=== PATIENT | male | born 1940 | race Caucasian/White ===

== ENCOUNTER 2017-08-08 11:05 | Inpatient (IN) | payer MEDICARE ==
--- NOTE | 2017-08-08 11:08 | HP ---
HISTORY OF PRESENT ILLNESS: William Aguilar Sr. is a 76-year-old male patient from [place] who was seen at [facility] recently in the emergency room and evaluated by Hospitalist Service and sent home. He had a blister of his right great toe. Since that time, he has developed gangrene on the plantar aspect and cellulitis of the toe and foot. He was seen in the office today and was se nt to the hospital for amputation of his right great toe. He was initially evaluated in the emergenc y room 08/05/2017. At that time, cultures revealed MRSA and he has been on metronidazole and Levaqui n to which he was sensitive. He had x-rays performed of the right foot, 08/04/2017, noting absence o f osteomyelitis, renal function was normal on laboratories 08/04/2017. ALLERGIES: PENICILLIN. TOBACCO AND ALCOHOL: None. PAST MEDICAL HISTORY: Diabetes mellitus type 2, hypertension, dyslipidemia, hypothyroidism, history of coronary artery disease with prior stent placement, peripheral neuropathy, gout. PAST SURGICAL HISTORY: Hip replacement, lumbar surgery, 4 back surgeries. He has a pain implant in his back in 2008, breast lump removed. Two foot surgeries, cardiac stent placed late . He is followed by Dr. Jordan. He saw Dr. Jordan last year, reports negative cardiac stress t est. He is asymptomatic from a cardiac standpoint. Hip replacement February 2013. MEDICATIONS: Gabapentin 300 mg 2 a.m., 2:00 p.m., Plavix 75 mg a day, allopurinol 300 mg a day, Paro xetine 30 mg b.i.d., losartan 50 mg a.m., Synthroid 0.125 mcg a.m., Mirapex 0.125 mg 6 daily, atorvas tatin 40 mg daily at bedtime, Lantus insulin a.m., NovoLog 10-20 units 3-4 times a day per sliding sc ghanshyam, hydrocodone 10/325 p.r.n. pain, iron 65 mg a day, folic acid 800 mg a day, Equate stool softener s daily, Equate aspirin 325 mg daily. REVIEW OF SYSTEMS: Ten point noncontributory. PHYSICAL EXAMINATION: VITAL SIGNS: Weight 228 pounds, 6 foot 4, 141/82, 80, 97.9 degrees. HEENT: Unremarkable. LUNGS: Clear to auscultation. CARDIAC: Regular rate and rhythm without murmur or gallop. ABDOMEN: Soft, nontender. EXTREMITIES: Palpable femoral, popliteal, dorsalis pedis, posterior tibial pulses. Right great toe reveals cellulitis over the dorsal aspect it is seen to the dorsum of the foot. There is some bliste ring of the skin. He has gangrenous changes on the plantar aspect of the right great toe. LABORATORY: Cultures 08/04/2017 right great toe MRSA, white count 13, hemoglobin 12 on 08/04/2017, p latelet count 240,000. Sodium 133, potassium 4.4, BUN 24, creatinine 1.27. Liver function tests nor mal 08/04/2017. ASSESSMENT AND PLAN: 1. Diabetic infection, right great toe with cellulitis of the great toe and foot. There are gangren ous changes. There is no evidence of peripheral artery disease. We will [facility] after amputation of right great toe, wound left open to heal by secondary intention, wound VAC ap plication. Anticipate discharge later in the week with home wound VAC, outpatient wound care to be a rranged by accounts receivable associate considering he lives in [place], will need home health or visitations to a local wound care center for wound VAC change, possibly [facility] pending transportation capabiliti es per patient. 2. Diabetes mellitus. 3. Hypertension. 4. Coronary artery disease, stable. Status post reported cardiac stress test last year, Dr. Valerie montemayor's office. 5. Chronic back pain with a pain pump stimulator in place, on [place] at home.
[2017-08-08] MEDS ORDERED: Propofol 200 MG/20 ML VIAL ONE (13:04)
[2017-08-08] MEDS ORDERED: Fentanyl 100 MCG/2 ML VIAL ONE ×2 (14:24→14:25)
[2017-08-08] MEDS ORDERED: Midazolam HCl 2 mg/2 ml Vial ONE (14:25)
[2017-08-08] MEDS ORDERED: Vancomycin HCl 500 MG VIAL ONE (14:32)
[2017-08-08] MEDS ORDERED: Diprivan 0 ML ONE (14:40)
[2017-08-08] MEDS ORDERED: Ondansetron HCl/PF 4 MG/2 ML Vial IVP PRN (16:23)
[2017-08-08] MEDS ORDERED: Promethazine HCl 25 MG/ML VIAL SLOW IVP PRN (16:23)
[2017-08-08] MEDS ORDERED: HYDROmorphone 2 MG/ML VIAL SLOW IVP PRN (16:23)
[2017-08-08] MEDS ORDERED: Promethazine HCl 25 MG/ML VIAL IM PRN (16:23)
[2017-08-08] MEDS ORDERED: Dextrose 50% Abboject 50 ML SYRINGE SLOW IVP PRN (17:59)
[2017-08-08] MEDS ORDERED: Acetaminophen 500 MG TAB PO PRN (17:59)
[2017-08-08] MEDS ORDERED: HumaLOG 300 UNITS/3 ML VIAL SC PRN (17:59)
[2017-08-08] MEDS ORDERED: Ondansetron ODT 4 MG TAB PO PRN (17:59)
[2017-08-08] MEDS ORDERED: traMADol HCl 50 MG TAB PO PRN ×2 (17:59)
[2017-08-08] MEDS ORDERED: Dextrose 5% in Water 1,000 ML IV PRN (17:59)
--- NOTE | 2017-08-08 20:51 | OP ---
PREOPERATIVE DIAGNOSIS: Diabetic infection of right foot with gangrene, cellulitis and deep plantar wound. POSTOPERATIVE DIAGNOSIS: Diabetic infection of right foot with gangrene, cellulitis and deep plantar wound (palpable pulses. No evidence of PAD). PROCEDURE: Amputation of right great toe through the proximal phalanx. Wound left open by secondary intention, wound VAC application. SURGEON: Dr. Shakir Anders ANESTHESIA: General. PROCEDURE IN DETAIL: Patient taken to the operating room where under general anesthesia, the right l ower extremity was prepared with Betadine and draped in routine fashion. Incision was made for fishm outh incision for amputation of the right great toe through the proximal phalanx. Incision carried d own through the skin and subcutaneous tissue and the proximal phalanx transected with bone cutter, re sected proximally with rongeur. Connective tissue debrided sharply. Hemostasis gained with the caut juan. Figure of eight suture of 4-0 Vicryl used for hemostasis. Wound care team arrived and placed a wound VAC. Patient had diabetic callus in left great toe plantar medial and this was debrided sharp ly after alcohol prep. Patient tolerated the procedure well.
[2017-08-08] MEDS ORDERED: Aztreonam 1 GM, Admixture Fee 1 EACH in Sterile Water 10 ML SLOW IVP SCH (21:00)
[2017-08-08] MEDS ORDERED: Pramipexole Di-HCl 0.25 MG TAB PO SCH (21:00)
[2017-08-08] MEDS ORDERED: Atorvastatin Calcium 40 MG TAB PO SCH (21:00)
[2017-08-08] MEDS ORDERED: Enoxaparin Sodium 40 MG/0.4 ML SYRINGE SC SCH (21:00)
[2017-08-08] MEDS ORDERED: Vancomycin HCl 1.5 GM in Sodium Chloride 0.9% 250 ML 300 ML IVPB SCH (21:00)
[2017-08-08] MEDS: Docusate 100 MG CAP PO SCH (21:46)
[2017-08-08] MEDS: Gabapentin 300 MG CAP PO SCH (21:47)
[2017-08-08] MEDS: Folic Acid 1 MG TAB PO SCH (21:48)
[2017-08-08] MEDS: Famotidine 20 MG TAB PO SCH (21:48)
[2017-08-08] MEDS: PARoxetine 20 MG TAB PO SCH (21:49)
[2017-08-08 22:01] VITALS: BMI 27.0
[2017-08-08] MEDS: TROSPIUM 20 MG TABLET PO SCH (22:10)
[2017-08-08] MEDS: HYDROcodone/Acetaminophen 10/325 mg Tablet PO PRN (22:55)
[2017-08-09] MEDS ORDERED: Vancomycin HCl 1.25 GM in Sodium Chloride 0.9% 250 ML 250 ML IVPB SCH (02:00)
[2017-08-09] MEDS ORDERED: Levothyroxine Sodium 112 MCG TAB PO SCH (06:00)
[2017-08-09] MEDS: HYDROcodone/Acetaminophen 10/325 mg Tablet PO PRN ×2 (06:44→13:14)
[2017-08-09] MEDS ORDERED: Ferrous Sulfate 325 MG TAB PO SCH (09:00)
[2017-08-09] MEDS ORDERED: Allopurinol 300 MG TAB PO SCH (09:00)
[2017-08-09] MEDS ORDERED: Losartan 25 MG TAB PO SCH (09:00)
[2017-08-09] MEDS ORDERED: Doxycycline 100 MG CAP PO SCH (09:00)
[2017-08-09] MEDS ORDERED: Clopidogrel Bisulfate 75 MG TAB PO SCH (09:00)
[2017-08-09] MEDS ORDERED: Aspirin 325 MG TAB PO SCH (09:00)
[2017-08-09] MEDS: Gabapentin 300 MG CAP PO SCH (09:57)
[2017-08-09] MEDS: PARoxetine 20 MG TAB PO SCH (09:58)
[2017-08-09] MEDS: Polyethylene Glycol 3350 17 GM Packet PO SCH ×2 (09:59→11:22)
[2017-08-09] MEDS: Docusate 100 MG CAP PO SCH (11:21)
[2017-08-09] MEDS: Famotidine 20 MG TAB PO SCH (11:22)
[2017-08-09] MEDS: Folic Acid 1 MG TAB PO SCH (11:22)
[2017-08-09] MEDS: TROSPIUM 20 MG TABLET PO SCH (13:15)
--- NOTE | 2017-08-09 15:15 | PRG ---
DATE OF SERVICE: 08/09/2017 SUBJECTIVE: He is s doing well today, MRSA sensitive to DOXYCYCLINE, CIPRO and, QUINOLONES. Dr. Yaz Coe seen him placed him on oral therapy. Patient's wound is doing better. He is having minimal pain. He has [place] at home. Plan is for the patient to be discharged home today with home VAC and home health nursing. He lives in [place], he used to see my in the office in 2-3 weeks. He is a dvised to keep his heel off the `bed to prevent decubitus. He will give blankets or pillows under hi s leg above his calf. Outpatient home health wound care has been arranged and he can go home with at is arranged today.
[2017-08-09 17:44] VITALS: BP 132/78; TEMP 98.9
--- NOTE | 2017-08-09 20:21 | CON ---
DATE OF CONSULTATION: 08/09/2017 REQUESTING: Dr. Anders. PRIMARY CARE PHYSICIAN: Dr. Crow Murray. PRIMARY PRIMARY CARE NURSE: Dr. Jordan. REASON FOR CONSULTATION: Medical management. HISTORY OF PRESENT ILLNESS: Mr. Aguilar is a 76-year-old gentleman initially presented to the emergency department on 08/05/2017 for a blister on his toe. He was seen by Dr. Roca then, labs were normal, evaluation was documented and the patient was recommended discharge home with outpatient follow up with Dr. Anders. The patient was discharged and subsequently followed with Dr. Anders sooner than originally planned. He developed blackness of his foot and rapid progression of redness. The patient had no pain due to neuropathy. He saw Dr. Anders in the clinic and it was recommended coming n.p.o. Patient was seen and then sent to the hospital where he underwent a partial hallux amputation on 04/2018. We were consulted postoperative medical management. The patient does have history of diabetes, iron deficiency anemia, coronary artery disease with negative stress test in 2016. He also has hyperlipidemia, hypertension, and hypothyroidism. Postop, he did well. We were called this morning to evaluate. He had a VAC placed in the operating room to the open wound and is awaiting VAC approval prior to discharge. He denies any fevers or chills, chest pain, shortness of breath, nausea or vomiting. He is tolerating his medicines and states his sugars have been running well. PAST MEDICAL HISTORY: 1. Coronary artery disease. 2. Diabetes mellitus type 2. 3. Iron deficiency anemia. 4. Hyperlipidemia. 5. Hypertension. 6. Hypothyroidism. 7. Peripheral neuropathy. 8. Gout. PAST SURGICAL HISTORY: ALICIA in 2012, he has had back surgery x4, most recently a lumbar surgery. He has pain pump implantation in 06/2009. He had a lumpectomy to the left breast, PTCA and stent placement in the s and foot surgery x2 remotely. HOME MEDICATIONS: 1. Gabapentin 300 mg p.o. b.i.d. 2. Plavix 75 mg daily. 3. Allopurinol 300 mg p.o. daily. 4. Lantus 50 units subcutaneously q.p.m. 5. Paroxetine 30 mg p.o. b.i.d. 6. Mirapex 0.25 mg p.o. t.i.d. 7. Atorvastatin 40 mg p.o. at bedtime. 8. Lantus 140 units subcutaneously every 12 hours. 9. NovoLog 10-20 units subcu a.c. 10. Hydrocodone/APAP 10/325. 11. Levothyroxine 0.125 mg daily. 12. Iron sulfate 325 mg daily. 13. Folate 800 mcg daily. 14. Aspirin 325 mg daily. 15. Stool softener daily. ALLERGIES: PENICILLIN. Reaction cause rash. FAMILY HISTORY: Negative for clotting, bleeding or kidney dysfunction. SOCIAL HISTORY: Negative for habits x3. He is a former smoker. REVIEW OF SYSTEMS: A 10-point review of systems was performed and negative for all other systems as stated per HPI. PHYSICAL EXAMINATION: VITAL SIGNS: Temperature 97.7, pulse 76, blood pressure 140/80, respiratory rate 18, satting 97% on room air. GENERAL: He is awake. He is alert. He is oriented x3. He is a well-developed , well-nourished, white male who appears in no acute distress. HEENT: Normocephalic, atraumatic. Pupils equal, round and reactive to light bilaterally. Mucous membranes are moist. No visible lesions. No thrush. NECK: Supple with no lymphadenopathy, JVD or thyromegaly. Normal carotid upstrokes. I do not appreciate bruits. LUNGS: Clear, no wheezing, no rales, no rhonchi. Good air movement. Symmetric chest excursion. CARDIOVASCULAR: Normal S1, S2. No S3 or S4. No audible murmurs. ABDOMEN: Soft, it is nontender, nondistended. No masses or organomegaly. EXTREMITIES: No cyanosis or clubbing. Left foot does have a wound VAC in place. He does have gangrenous changes around the hallux. He does not have any palpable pulses, but his foot is warm. Right foot appears fairly normal. He has significant neuropathy, but no lesions. SKIN: Otherwise warm and moist, well perfused and no rash or lesion. NEUROLOGIC: Cranial nerves II-XII grossly intact, no focal deficits, 5/5 strength, normal speech pattern. He does have a significant peripheral neuropathy, predominantly of his bilateral lower extremities. MUSCULOSKELETAL: Large joints appear not inflamed and no palpable effusion. Otherwise, normal to inspection with exception of the above. LABORATORY DATA: Showed sodium 133, potassium 4.4, chloride 102, bicarbonate 28 , BUN 24, creatinine 1.27, and glucose 312. Calcium 9.7. Function is completely normal. CBC showed white count 13.1, hemoglobin 12.5, hematocrit 37.2, platelet count 240,000. IMAGING DATA: Foot x-ray in the emergency department back on 08/04/2017 that showed foreign body present before and after deroofing, but no bony destructive changes. ASSESSMENT AND PLAN: 1. Diabetic neuropathic ulcer/foreign body with acute infection, gangrene, and probable underlying osteo status post partial hallux amputation. The patient has a wound VAC in place. After seeing the patient prior to taking this note, wound VAC was approved and patient was setup for outpatient followup and discharge. 2. Diabetes mellitus type 2, no A1c was taken. Sugars have been fairly well controlled. We will continue home medication regimen. 3. Iron deficiency anemia. 4. Hyperlipidemia, on atorvastatin. We will continue. 5. Hypertension. We will continue home medications. 6. Hypothyroidism on levothyroxine. We will continue. 7. Peripheral neuropathy on allopurinol prophylaxis. Thank you very much for this consult. We will follow along with you. SHARRON
--- NOTE | 2017-08-09 23:59 | DIS ---
DATE OF ADMISSION: 08/08/2017 DATE OF DISCHARGE: 08/09/2017 DISCHARGE DIAGNOSIS: Diabetic necrotizing infection, right great toe. PROCEDURES: Amputation of right great toe through the proximal phalanx, amputation wound VAC. DISCHARGE PLANS: Resume home medications, supplementing with Cipro x2 weeks, doxycycline times a wee k. Follow up in my office in 2-3 weeks. Home health wound care, VAC care have been arranged. OTHER DIAGNOSES: Diabetes mellitus type 2, obesity, history of coronary artery disease with prior st enting, peripheral neuropathy, gout, history of hip replacement, lumbar surgery, chronic back pain on [place] at home, followed Dr. Jordan from his cardiac stent. Last seen Dr. Jordan with a negati ve stress test last year. HISTORY: A 76-year-old male seen in the emergency room by Hospitalist and sent home on oral antibiot ics. His right foot wound worsened. He called my office stating that he had gangrenous changes. He had an appointment to see me in the next few days, but he was brought in n.p.o. and admitted to the hospital and underwent amputation of the right great toe that morning. A wound VAC was arranged, ora l therapy arranged. He is discharged home with home health wound care. For VAC care appointment, se willian grady in the office in 2-3 weeks. He will continue his prehospitalization medications.
== END 2017-08-09 19:00 | disposition home health service (06) | DRG 256 ==
LOC: SDC 11:05 → SURG B 15:47
PROVIDERS: ADMIT Specialist; ATTEND Specialist
PROC: 0Y6P0Z1 Detachment at Right 1st Toe, High, Open Approach (ICD-10-PCS; principal; 2017-08-08)
DX: E11.52 Type 2 diabetes mellitus with diabetic peripheral angiopathy with gangrene (principal); I96 Gangrene, not elsewhere classified; E11.42 Type 2 diabetes mellitus with diabetic polyneuropathy; L03.115 Cellulitis of right lower limb; E11.628 Type 2 diabetes mellitus with other skin complications; L03.031 Cellulitis of right toe; I25.10 Atherosclerotic heart disease of native coronary artery without angina pectoris; I10 Essential (primary) hypertension; M54.9 Dorsalgia, unspecified; E78.5 Hyperlipidemia, unspecified; E03.9 Hypothyroidism, unspecified; M10.9 Gout, unspecified; Z95.5 Presence of coronary angioplasty implant and graft; Z79.4 Long term (current) use of insulin; E66.9 Obesity, unspecified; Z79.891 Long term (current) use of opiate analgesic; D50.9 Iron deficiency anemia, unspecified; Z87.891 Personal history of nicotine dependence; Z96.641 Presence of right artificial hip joint; G47.33 Obstructive sleep apnea (adult) (pediatric); K21.9 Gastro-esophageal reflux disease without esophagitis; B95.62 Methicillin resistant Staphylococcus aureus infection as the cause of diseases classified elsewhere; Z68.27 Body mass index [BMI] 27.0-27.9, adult
CPT/HCPCS: 36415; 36416; 80053; 85025; 85652; 86140; 87040; 87070; 87077; 87186; 87205; 88305; 88311; 96372; 96374; 96375; A4216; G8978-GP-CL; G8979-GP-CK; J1650; J2001; J2250; J2704; J3010; J3370; J3490; J7050

== ENCOUNTER 2018-06-07 23:06 | Observation (INO) | payer MEDICARE ==
[2018-06-08 00:22] LABS: #Basophils 0.1 thou/uL (0.0-0.2); #Eosinphils 0.3 thou/uL (0.0-0.7); #Lymphocytes 2.7 thou/uL (1.20-3.40); #Monocytes 0.8 thou/uL (0.11-0.59); #Neutrophils 8.4 thou/uL (1.40-6.50); %Basophils 0.7 % (0.0-1.0); %Eosinophils 2.6 % (0.0-10.0); %Lymphocytes 21.8 % (21.0-51.0); %Monocytes 6.3 % (0.0-10.0); %Neutrophils 68.6 % (42.0-75.0); Hemoglobin 10.4 g/dL (14.0-18.0); Mean Corpuscular HGB CONC 32.5 g/dL (32.0-36.0); Mean Corpuscular Hemoglobin 30.6 pg (27.0-31.0); Mean Corpuscular Volume 94.1 fL (78.0-98.0); Mean Platelet Volume 7.3 fL (7.4-10.4); Platelet Count 245 thou/uL (130-400); RBC Distribution Width 12.6 % (11.5-14.5); White Blood Cell (WBC) Count 12.2 thou/uL (4.8-10.8)
[2018-06-08 00:44] LABS: ALT (SGPT) 26 U/L (8-55); AST (SGOT) 25 U/L (5-34); Albumin 3.5 g/dL (3.4-4.8); Alkaline Phosphatase 96 U/L (40-150); Anion Gap 9 mmol/L (10-20); BUN (Urea Nitrogen) 21 mg/dL (8.4-25.7); Bilirubin, Total 0.2 mg/dL (0.2-1.2); CK (CPK) 311 U/L (30-200); Calc. Creatinine Clearance 0 mL/min (70-130); Calcium 8.8 mg/dL (7.8-10.44); Carbon Dioxide 26 mmol/L (23-31); Chloride 106 mmol/L (98-107); Estimated GFR-MDRD 75; Globulin 2.4 g/dL (2.4-3.5); Glucose 148 mg/dL (83-110); Potassium 4.5 mmol/L (3.5-5.1); Protein, Total 5.9 g/dL (5.8-8.1); Sodium 136 mmol/L (136-145)
[2018-06-08 01:18] LABS: Bilirubin Negative (Negative); Blood, Urine Negative (Negative); Clarity CLEAR (Clear); Glucose, Urine (Dipstick) 250 mg/dL (Negative); Leukocyte Small (Negative); Nitrite Negative (Negative); Protein, Urine (Dipstick) Negative (Neg-Trace); Specific Gravity, Urine 1.011 (1.002-1.036); Urobilinogen 0.2 mg/dL (0.2-1.0); pH, Urine 5.5 (5.0-9.0)
[2018-06-08 01:20] LABS: Bacteria/HPF None Seen HPF (None Seen); Hyaline Casts/LPF 0-3 HYALINE CAST LPF (0-3 Hyaline); Pathc Cast-AUWi Flag 0.14 (0-2.49); RBC/HPF 0-3 HPF (0-3); Squamous Epithelial 0-3 HPF (0-3)
[2018-06-08] MEDS ORDERED: Morphine 4 MG/ML VIAL ONE (06:23)
[2018-06-08] MEDS ORDERED: HYDROcodone/Acetaminophen 10/325 mg Tablet PO PRN (06:45)
[2018-06-08] MEDS ORDERED: Dextrose 50% Abboject 50 ML SYRINGE SLOW IVP PRN (06:47)
[2018-06-08] MEDS ORDERED: Ondansetron PF 4 MG/2 ML Vial IVP PRN (06:47)
[2018-06-08] MEDS ORDERED: Dextrose 5% in Water 1,000 ML IV PRN (06:47)
[2018-06-08] MEDS ORDERED: Ondansetron ODT 4 MG TAB PO PRN (06:47)
[2018-06-08] MEDS ORDERED: Cyclobenzaprine 10 MG TAB PO PRN (06:53)
--- NOTE | 2018-06-08 07:31 | RAD ---
LEFT HIP 2 VIEWS: Date: 06/07/18 HISTORY: 77-year-old male with history of injury following a slip and fall. FINDINGS/IMPRESSION: Mild degenerative changes. No fracture, dislocation, or other acute process. POS: [facility]
--- NOTE | 2018-06-08 07:32 | RAD ---
LEFT ANKLE 3 VIEWS: Date: 06/07/18 HISTORY: 77-year-old male with history of injury following a slip and fall. FINDINGS: Two internal fixation screws are stabilizing the medial malleolus. Mild degenerative changes. No frac ture or dislocation. IMPRESSION: No fracture or dislocation. POS: [facility]
--- NOTE | 2018-06-08 07:33 | RAD ---
AP PELVIS 1 VIEW: Date: 06/07/18 HISTORY: 77-year-old male with history of injury following a slip and fall. FINDINGS: Total right hip replacement changes. No acute pelvic fracture. Mild degenerative changes of the SI froilan ints. IMPRESSION: No acute fracture or dislocation. Right total hip replacement. POS: [facility]
--- NOTE | 2018-06-08 07:34 | RAD ---
LEFT TIBIA AND FIBULA 2 VIEWS: Date: 06/07/18 HISTORY: 77-year-old male with history of injury following a slip and fall. FINDINGS/IMPRESSION: No acute fracture, dislocation, or other significant acute osseous abnormality. POS: [facility]
--- NOTE | 2018-06-08 07:35 | RAD ---
LEFT KNEE 4 VIEWS: Date: 06/07/18 HISTORY: 77-year-old male with history of left knee injury following a clip and fall and trauma. FINDINGS: There is evidence for a bone infarct in the distal femoral shaft. No fracture, dislocation, or other significant acute osseous abnormality. 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 No acute fracture or dislocation. POS: [facility]
--- NOTE | 2018-06-08 08:19 | CT ---
PRELIMINARY REPORT/[facility]/EMERGENTY AFTER-HOURS PROCEDURE CT Pelvis Without Intravenous Contrast, Skeletal EXAM DATE/TIME: 06/08/2018 1:39 AM CLINICAL HISTORY: 77 years old, male; Injury or trauma; Fall; Initial encounter; Blunt trauma (contusions or hematomas) ; Bilateral; Hip; Patient HX: Patient presents for evaluation of fall, from standing, from height les s than 3 feet, landing on hard surface, landing on buttocks, patient presents for evaluation of wendy ed and fell backward onto l hip (while moving around in garage); Crawled to chair and called ems ~3hr s later when pain was still severe. Denies hit to head/loc. TECHNIQUE: Axial computed tomography images of the pelvis without intravenous contrast. Exam focused on the skel etal structures. Coronal and sagittal reformatted images were created and reviewed. COMPARISON: No relevant prior studies available. FINDINGS: Stomach and bowel: Scattered colonic diverticulosis. Appendix: Appendix is normal. Bones/joints: Right hip arthroplasty, without acute complications. Degenerative changes of the left hip and sacroiliac joints. Multilevel lumbar spine degenerative changes. Soft tissues: Unremarkable. IMPRESSION: No acute abnormality. Thank you for allowing us to participate in the care of your patient. Dictated and Authenticated by: Foreign Boyer MD 06/08/2018 2:26 AM Central Time ([place] & [place]) FINAL REPORT CT PELVIS WITHOUT CONTRAST: Date: 06/08/18 HISTORY: Pain. Trauma. Fall. COMPARISON: None. FINDINGS/IMPRESSION: Findings and impression are concordant with the preliminary report by Rafi. 1. In addition, there are some flame-shaped what appear to be contusions of the right and left anter ior abdominal wall. 2. Large hematoma within the left gluteus medius and gluteus karo muscles, asymmetric to the righ t. POS: [facility]
--- NOTE | 2018-06-08 08:58 | HP-2 ---
DATE OF ADMISSION: 06/08/2018 ATTENDING PHYSICIAN: Dr. Rojas. TRAUMA ACTIVATION: Not applicable. HISTORY OF PRESENT ILLNESS: This is a 77-year-old male who presented to [facility] post fall. Per patient, he picked up a planer and fell backwards in his garage, landing on his left hip and buttocks. He denies head trauma or loss of consciousness. The patient was seen and cruzito luated in the emergency room and although there were no bony injuries, fracture or dislocation. The patient was experiencing significant pain that was uncontrolled. Trauma Services was asked to admit for observation and pain control. Upon my evaluation, the patient has a chief complaint of 05/08 lef t hip pain. He had received 17 of morphine and 24 of Phenergan via EMS, but has not since received a ny pain medications. Patient states that pain is improved minimally with the medications that have b een administered. He is relatively drowsy and somewhat uncooperative with exam and somewhat agitated and at times uncooperative with exam and history. For that reason, a portion of the history was antionette en as able from his spouse. ALLERGIES: PENICILLINS. HOME MEDICATIONS: Include gabapentin 600 mg p.o. b.i.d., losartan 50 mg p.o. daily, Synthroid 137 mc g p.o. daily, pramipexole 0.5 mg t.i.d., Plavix 75 mg p.o. daily, paroxetine 30 mg b.i.d., atorvastat in 40 mg p.o. at bedtime, allopurinol 300 mg p.o. daily, hydrocodone 10/325 q.6 hours p.r.n., Lantus 140 units q.a.m., NovoLog sliding scale insulin, stool softeners b.i.d., aspirin 325 p.o. daily, foli c acid 800 mg b.i.d., iron 65 mg p.o. daily, potassium supplements 99 mEq daily, vitamin A supplement ation. PAST MEDICAL HISTORY: Insulin-dependent diabetes, coronary artery disease, status post percutaneous transluminal coronary angioplasty, hypothyroidism, neuropathy and gout. PAST SURGICAL HISTORY: Includes tonsillectomy, back surgeries x4, 2 foot surgeries, pain pump implan tation in his back, stent placement, nasal surgery, throat surgery, pinning of his leg side unknown a t this time, pain pump removal, right hip replacement, left chest/breast lumpectomy, right first toe amputation, bladder injections with Botox and right second toe amputation. SOCIAL HISTORY: The patient lives with . FAMILY HISTORY: Unobtainable. REVIEW OF SYSTEMS: Unobtainable. PHYSICAL EXAMINATION: VITAL SIGNS: On evaluation, blood pressure 123/79, pulse 86, respirations 19, O2 sat 98% on room air , temperature 98.4. GENERAL: Elderly appearing male in no acute distress, resting in bed. HEAD: Normocephalic, atraumatic. EYES: Pupils are PERRL. Extraocular movements are intact. NECK: Supple. Trachea is midline. CHEST: Atraumatic. PULMONARY: Normal work of breathing, symmetric rise. LUNGS: Clear to auscultation bilaterally. ABDOMEN: Soft, nontender, nondistended. Bowel sounds are positive. BACK: Reported as being within normal limits. MUSCULOSKELETAL: Bilateral upper extremities within normal limits. Left lower extremity with skin t ears and contusions, dressed by ER staff. Right lower extremity with limited range of motion seconda ry to pain. NEUROLOGIC: GCS of 15 and no focal deficit is noted. LABORATORY DATA: WBC 12.2, hemoglobin 10.4, hematocrit 32.0, platelet count 245. Sodium 136, potass ium 4.5, chloride 106, carbon dioxide 26, BUN 21, creatinine 0.97, glucose 148, AST and ALT within no rmal limits. Urinalysis with some glucosuria and 11-20 WBCs, no bacteria, no nitrites. RADIOLOGIC FINDINGS: CT of the pelvis was negative for fracture or dislocation, did demonstrate dege nerative changes of the hip and sacroiliac joints. Left ankle x-ray was negative for fracture or dis location. Hip x-ray was negative for bony fracture or dislocation. Left knee x-ray showed no acute fracture or dislocation. X-ray of the pelvis was also negative for fracture or dislocation and x-ray of the left tibia and fibula was negative for fracture or dislocation. ASSESSMENT: 1. Status post mechanical fall. 2. Acute traumatic pain. 3. Left hip contusion. 4. History of coronary artery disease status post percutaneous transluminal coronary angioplasty. 5. Insulin-dependent diabetes. 6. Hypothyroidism. 7. History of neuropathy. 8. History of gout. 9. History of chronic pain on daily narcotics. PLAN: Admit to trauma services for pain control and observation. The patient has been seen and eval uated by [facility] and tentatively accepted at their facility; mayi larson, there is no bed availability at this time. PT and OT. Pain management p.o. analgesics. DVT an d gastritis prophylaxis as appropriate. We will reconcile patient's home medications. Plan for admi ssion was discussed with the patient and family at bedside and all questions were answered at the jessica e of this dictation. Trauma attending has been notified of admission.
[2018-06-08] MEDS: Ibuprofen 600 MG TAB PO SCH ×3 (09:59→23:01)
[2018-06-08] MEDS: Senokot S 8.6-50 MG TAB PO SCH ×2 (09:59→20:11)
[2018-06-08] MEDS: HYDROcodone/Acetaminophen 10/325 mg Tablet PO SCH ×5 (09:59→23:01)
[2018-06-08] MEDS: Polyethylene Glycol 3350 17 GM Packet PO SCH (09:59)
[2018-06-08] MEDS: Gabapentin 300 MG CAP PO SCH ×2 (09:59→20:11)
[2018-06-08] MEDS: Famotidine 20 MG TAB PO SCH ×2 (10:00→20:11)
[2018-06-08] MEDS: Allopurinol 300 MG TAB PO SCH (10:00)
[2018-06-08] MEDS: Clopidogrel Bisulfate 75 MG TAB PO SCH (10:00)
[2018-06-08] MEDS: Aspirin 325 MG TAB PO SCH (10:00)
[2018-06-08 14:34] VITALS: BMI 27.0
[2018-06-08] MEDS: HumaLOG 300 UNITS/3 ML VIAL SC PRN (18:42)
[2018-06-08] MEDS ORDERED: Enoxaparin Sodium 40 MG/0.4 ML SYRINGE SC SCH (21:00)
[2018-06-08] MEDS ORDERED: Atorvastatin Calcium 40 MG TAB PO SCH (21:00)
[2018-06-09] MEDS: HYDROcodone/Acetaminophen 10/325 mg Tablet PO SCH ×3 (02:40→12:33)
[2018-06-09 05:12] LABS: #Basophils 0.1 thou/uL (0.0-0.2); #Eosinphils 0.4 thou/uL (0.0-0.7); #Lymphocytes 2.2 thou/uL (1.20-3.40); #Monocytes 0.7 thou/uL (0.11-0.59); #Neutrophils 6.7 thou/uL (1.40-6.50); %Basophils 0.6 % (0.0-1.0); %Eosinophils 3.8 % (0.0-10.0); %Lymphocytes 21.6 % (21.0-51.0); %Monocytes 7.2 % (0.0-10.0); %Neutrophils 66.8 % (42.0-75.0); Mean Corpuscular HGB CONC 33.4 g/dL (32.0-36.0); Mean Corpuscular Hemoglobin 31.4 pg (27.0-31.0); Mean Corpuscular Volume 94.1 fL (78.0-98.0); Mean Platelet Volume 7.2 fL (7.4-10.4); Platelet Count 195 thou/uL (130-400); RBC Distribution Width 12.6 % (11.5-14.5); Red Blood Cell (RBC) Count 2.86 mill/uL (4.70-6.10); White Blood Cell (WBC) Count 10.1 thou/uL (4.8-10.8)
[2018-06-09 05:26] LABS: Anion Gap 8 mmol/L (10-20); BUN (Urea Nitrogen) 18 mg/dL (8.4-25.7); Calc. Creatinine Clearance 104 mL/min (70-130); Calcium 8.8 mg/dL (7.8-10.44); Carbon Dioxide 28 mmol/L (23-31); Chloride 105 mmol/L (98-107); Estimated GFR-MDRD 86; Glucose 120 mg/dL (83-110); Magnesium 2.1 mg/dL (1.6-2.6); Phosphorus 3.6 mg/dL (2.3-4.7); Potassium 4.4 mmol/L (3.5-5.1); Sodium 137 mmol/L (136-145)
[2018-06-09] MEDS ORDERED: Levothyroxine Sodium 25 MCG TAB PO SCH (06:00)
[2018-06-09] MEDS ORDERED: Levothyroxine Sodium 112 MCG TAB PO SCH (06:00)
[2018-06-09] MEDS: Ibuprofen 600 MG TAB PO SCH (06:37)
[2018-06-09] MEDS: Senokot S 8.6-50 MG TAB PO SCH (08:19)
[2018-06-09] MEDS: Famotidine 20 MG TAB PO SCH (08:19)
[2018-06-09] MEDS: Aspirin 325 MG TAB PO SCH (08:19)
[2018-06-09] MEDS: Allopurinol 300 MG TAB PO SCH (08:19)
[2018-06-09] MEDS: Clopidogrel Bisulfate 75 MG TAB PO SCH (08:19)
[2018-06-09] MEDS: Gabapentin 300 MG CAP PO SCH (08:19)
[2018-06-09] MEDS: Polyethylene Glycol 3350 17 GM Packet PO SCH (08:20)
[2018-06-09] MEDS: HumaLOG 300 UNITS/3 ML VIAL SC PRN (11:37)
[2018-06-09 11:38] VITALS: BP 127/68; TEMP 97.8
--- NOTE | 2018-06-09 23:40 | DIS ---
DATE OF ADMISSION: 06/08/2018 DATE OF DISCHARGE: 06/09/2018 ADMISSION DIAGNOSES: 1. Status post mechanical fall. 2. Left hip contusion and pain. 3. Acute traumatic pain. 4. History of coronary artery disease, status post percutaneous transluminal coronary angioplasty. 5. Insulin-dependent diabetes. 6. Hypothyroidism. 7. History of neuropathy. 8. History of gout. 9. History of chronic pain on daily narcotics. DISCHARGE DIAGNOSES: 1. Status post mechanical fall. 2. Left hip contusion and pain. 3. Acute traumatic pain. 4. History of coronary artery disease, status post percutaneous transluminal coronary angioplasty. 5. Insulin-dependent diabetes. 6. Hypothyroidism. 7. History of neuropathy. 8. History of gout. 9. History of chronic pain on daily narcotics. 10. Urinary retention. CONSULTANTS: None. HOSPITAL COURSE: William Aguilar is a 77-year-old male who presented to [facility], [facility] post mechanical fall, although patient's radiographs were negative for bony fracture or dislocat ion. The patient had uncontrolled pain and was therefore admitted for observation and pain control. The patient was seen and evaluated by physical therapy. His pain regimen at home consisted of Parshall . Therefore, he was restarted on that with increased frequency of doses. Patient's mobility continu ed to improve as his pain improved. Of note, during his hospitalization, the patient reported urinar y urgency and incontinence. The patient has reportedly been self-cathing at home and recently was di agnosed with a urinary tract infection. He has plans to follow up with the urologist. A Villafana was p laced at bedside and a was provided to the patient. On 06/09/2018, the patient was deemed stab le for discharge after clearance by physical therapy. DISCHARGE DISPOSITION: Home. DISCHARGE CONDITION: Good. PHYSICAL EXAMINATION: GENERAL: Elderly appearing male, in no acute distress, sitting on edge of bed. PULMONARY: Normal work of breathing, symmetric rise. CARDIOVASCULAR: Regular rate and rhythm. GASTROINTESTINAL: Abdomen is soft, nontender, nondistended. MUSCULOSKELETAL: Moves all extremities x4. NEUROLOGIC: No focal deficit is noted. DISCHARGE INSTRUCTIONS: Discharge instructions were provided to the patient who vocalizes understand ing. He should continue his Villafana catheter until his Urology appointment. He should continue his an tibiotics for his urinary tract infection as directed by his primary care provider. DISCHARGE MEDICATIONS: The patient was discharged home on his home regimen with the exception of inc reasing his pain medication to 1-2 tabs of Parshall 10/325 q.6 hours p.r.n. FOLLOWUP APPOINTMENTS: The patient is to follow up with his primary care provider for chronic pain a nd chronic medical illnesses. He should follow up with his urologist for his urinary symptoms and hi s pending bladder injections as well as urinary retention and urinary tract infection. He does not n eed to follow up formally with Trauma Services, but may call our office with any questions. This is merely a summary of the patient's hospitalization. For more in depth information, please see [facility] in its entirety.
== END 2018-06-09 15:12 | disposition home or self-care (01) ==
LOC: ERS 23:06 → SJJU 06-08 06:47
PROVIDERS: ADMIT Surgery; ATTEND Surgery
DX: S70.02XA Contusion of left hip, initial encounter (principal); E11.9 Type 2 diabetes mellitus without complications; E03.9 Hypothyroidism, unspecified; I25.10 Atherosclerotic heart disease of native coronary artery without angina pectoris; R33.9 Retention of urine, unspecified; Z79.02 Long term (current) use of antithrombotics/antiplatelets; Z79.899 Other long term (current) drug therapy
CPT/HCPCS: 72170; 72192; 73502; 73564; 73590; 73610; 80048; 80053; 82550; 82962 ×2; 83605; 83735; 84100; 85025 ×2; 87077; 87086; 87186; 94760; 96372; 96374; 97116; 97139 ×2; 99285; G0378 ×2; G8978; G8979; 36415; 36416; 81003; 81015; G0390; J1650; J2270

== ENCOUNTER 2018-06-13 19:26 | Emergency (ER) | payer MEDICARE ==
[~2018-06-13 19:26] MED LIST: ISOVUE-370 76%-LOCM 1 ML ONE
[2018-06-13] MEDS ORDERED: Methocarbamol 1 GM in Sodium Chloride 0.9% 250 ML 250 ML IVPB SCH (21:00)
[2018-06-13 21:02] LABS: #Eosinphils 0.4 thou/uL (0.0-0.7); #Lymphocytes 2.4 thou/uL (1.20-3.40); #Monocytes 0.5 thou/uL (0.11-0.59); %Basophils 0.4 % (0.0-1.0); %Eosinophils 3.6 % (0.0-10.0); %Lymphocytes 21.2 % (21.0-51.0); %Monocytes 4.7 % (0.0-10.0); %Neutrophils 70.1 % (42.0-75.0); Hemoglobin 9.8 g/dL (14.0-18.0); Mean Corpuscular HGB CONC 32.8 g/dL (32.0-36.0); Mean Corpuscular Hemoglobin 30.7 pg (27.0-31.0); Mean Corpuscular Volume 93.4 fL (78.0-98.0); Mean Platelet Volume 7.1 fL (7.4-10.4); Platelet Count 282 thou/uL (130-400); RBC Distribution Width 13.5 % (11.5-14.5); Red Blood Cell (RBC) Count 3.18 mill/uL (4.70-6.10); White Blood Cell (WBC) Count 11.4 thou/uL (4.8-10.8)
[2018-06-13 21:21] LABS: ALT (SGPT) 22 U/L (8-55); AST (SGOT) 18 U/L (5-34); Albumin 3.5 g/dL (3.4-4.8); Alkaline Phosphatase 98 U/L (40-150); Anion Gap 11 mmol/L (10-20); BUN (Urea Nitrogen) 28 mg/dL (8.4-25.7); Bilirubin, Total 1.1 mg/dL (0.2-1.2); Calc. Creatinine Clearance 0 mL/min (70-130); Calcium 9.6 mg/dL (7.8-10.44); Carbon Dioxide 26 mmol/L (23-31); Chloride 103 mmol/L (98-107); Estimated GFR-MDRD 81; Glucose 186 mg/dL (83-110); Potassium 4.4 mmol/L (3.5-5.1); Protein, Total 6.5 g/dL (5.8-8.1); Sodium 136 mmol/L (136-145)
[2018-06-13 21:27] LABS: CKMB 2.5 ng/mL (0-6.6); Troponin I Less than 0.010 ng/mL (< 0.028)
[2018-06-13] MEDS ORDERED: traMADol HCl 50 MG TAB ONE (23:01)
--- NOTE | 2018-06-14 09:59 | CT ---
CT ABDOMEN AND PELVIS: HISTORY: Left hip pain after fall. FINDINGS: Contrast-enhanced CT images of the abdomen and pelvis are obtained after administration of IV contras t. There is a large hiatal hernia. Surgical clip is seen in the diaphragm. The liver and spleen are unremarkable. The gallbladder and pancreas are unremarkable. Adrenal gland s unremarkable. The kidneys are unremarkable. No dilated loops of bowel seen. The colon is unremar kable. No evidence of periaortic lymphadenopathy seen. Left lower lumbar surgical changes seen. There is a 3.6 cm gluteal hematoma. No adjacent hip fracture is seen. IMPRESSION: Left gluteal hematoma. POS: [facility]
== END 2018-06-13 23:28 | disposition home or self-care (01) ==
LOC: ERS 19:26
DX: S30.0XXA Contusion of lower back and pelvis, initial encounter (principal); M79.10 Myalgia, unspecified site; E11.9 Type 2 diabetes mellitus without complications; E05.90 Thyrotoxicosis, unspecified without thyrotoxic crisis or storm; E78.5 Hyperlipidemia, unspecified; I10 Essential (primary) hypertension; Z79.891 Long term (current) use of opiate analgesic; Z79.899 Other long term (current) drug therapy; Z79.82 Long term (current) use of aspirin; W19.XXXA Unspecified fall, initial encounter
CPT/HCPCS: 36415; 74177; 80053; 82553; 84484; 85025; 96365; J2800; J7050

== ENCOUNTER 2018-12-20 13:20 | Outpatient (CLI) | payer MEDICARE ==
--- NOTE | 2018-12-20 14:09 | ULT ---
EXAM: Bilateral lower extremity venous Doppler US HISTORY: bilateral lower extremity edema and pain FINDINGS: Grayscale, color-flow, Doppler evaluation, spectral analysis of the bilateral lower extremities venou s structures is performed with 2-D imaging. The bilateral common femoral, superficial femoral, popliteal, posterior tibial, proximal greater saphenous and profunda femoral veins are imaged. There is normal luminal compressibility, flow, and augmentation in the visualized deep venous structu res of the bilateral lower extremities. IMPRESSION: No evidence of a deep vein thrombosis in either lower extremity.
--- NOTE | 2018-12-20 15:19 | ULT ---
Lower extremity arterial Doppler evaluation INDICATION: History of chronic ulcer of the left ankle FINDINGS: No comparisons. There are triphasic waveforms involving the arterial structures of both lower extremities. No hemodyn amically significant stenosis is demonstrated. IMPRESSION: No hemodynamically significant stenosis seen involving the arterial structures of both lo wer extremities.
== END 2018-12-20 13:21 | disposition home or self-care (01) ==
LOC: ULT 13:20
PROVIDERS: ATTEND Specialist
DX: L97.322 Non-pressure chronic ulcer of left ankle with fat layer exposed (principal)
CPT/HCPCS: 93923; 93970

== ENCOUNTER 2020-05-21 09:49 | Emergency (ER) | payer MEDICARE ==
[2020-05-21 10:25] LABS: #Basophils 0.1 thou/uL (0.0-0.2); #Eosinphils 0.6 thou/uL (0.0-0.7); #Lymphocytes 1.6 thou/uL (1.20-3.40); #Neutrophils 8.1 thou/uL (1.40-6.50); %Basophils 0.7 % (0.0-1.0); %Lymphocytes 14.1 % (21.0-51.0); %Monocytes 8.4 % (0.0-10.0); %Neutrophils 71.8 % (42.0-75.0); Hemoglobin 12.8 g/dL (14.0-18.0); Mean Corpuscular HGB CONC 34.7 g/dL (32.0-36.0); Mean Corpuscular Hemoglobin 32.2 pg (27.0-31.0); Mean Corpuscular Volume 92.8 fL (78.0-98.0); Mean Platelet Volume 7.3 fL (7.4-10.4); Platelet Count 215 thou/uL (130-400); RBC Distribution Width 12.6 % (11.5-14.5); Red Blood Cell (RBC) Count 3.96 mill/uL (4.70-6.10); White Blood Cell (WBC) Count 11.3 thou/uL (4.8-10.8)
[2020-05-21 10:42] LABS: ALT (SGPT) 17 U/L (8-55); AST (SGOT) 12 U/L (5-34); Albumin 3.6 g/dL (3.4-4.8); Alkaline Phosphatase 114 U/L (40-110); Anion Gap 16 mmol/L (10-20); BUN (Urea Nitrogen) 18 mg/dL (8.4-25.7); Bilirubin, Total 0.4 mg/dL (0.2-1.2); Calc. Creatinine Clearance 0 mL/min (70-130); Calcium 9.1 mg/dL (7.8-10.44); Carbon Dioxide 22 mmol/L (23-31); Chloride 102 mmol/L (98-107); Estimated GFR-MDRD 78; Globulin 3.2 g/dL (2.4-3.5); Glucose 262 mg/dL (83-110); Potassium 4.5 mmol/L (3.5-5.1); Protein, Total 6.8 g/dL (5.8-8.1); Sodium 135 mmol/L (136-145)
--- NOTE | 2020-05-21 10:58 | RAD ---
EXAM: 2 views of the left hip HISTORY: Left hip pain after fall COMPARISON: 04/06/2020 FINDINGS: 2 views of the left hip shows no evidence of acute fracture or dislocation. Severe joint sp tati narrowing and osteophyte formation is seen. There is flattening of the femoral head.. No soft tissue swelling is present. IMPRESSION: Severe left hip osteoarthritis without evidence of acute osseous abnormality.
--- NOTE | 2020-05-21 10:59 | RAD ---
Exam: Single view of the pelvis HISTORY: Fall with left hip pain COMPARISON: 06/07/2018 FINDINGS: A single view the pelvis shows no evidence of acute fracture or dislocation. The patient mcdaniels s a right hip prosthesis without perihardware lucency or fracture. Severe degenerative changes are seen in the left hip with subchondral cystic change and joint space narrowing as well as osteophyte f ormation. There is flattening of the left femoral head. IMPRESSION: Severe left hip osteoarthritis without evidence of acute osseous abnormality.
--- NOTE | 2020-05-21 11:19 | RAD ---
RIGHT SHOULDER 2 VIEWS: Date: 05/21/2020 Both views are obtained in a scapular Y projection. The exam is inadequate for evaluation of the shou lder. AP view should be obtained with internal and external rotation. HISTORY: Trauma. Fall yesterday with shoulder pain. FINDINGS: No evidence of dislocation on the scapular Y view. AC joint is upper normal width but is normally ali gned. No acute fracture identified. IMPRESSION: Inadequate shoulder evaluation. No evidence of dislocation. POS: OFF
--- NOTE | 2020-05-21 11:21 | RAD ---
SUPINE CHEST: Date: 05/21/2020 INDICATION: Trauma. Fall with shoulder pain. COMPARISON: 07/31/2016. FINDINGS: There is cardiomegaly. Mild vascular engorgement without overt congestion or edema. No infiltrate. Le ft lung base is poorly evaluated on this exam. The osseous structures appear intact on this single AP projection. IMPRESSION: Cardiomegaly. No evidence of acute process identified. POS: OFF
--- NOTE | 2020-05-21 11:25 | CT ---
Exam: Head CT without contrast HISTORY: Trauma. Pain. COMPARISON: 04/06/2020 FINDINGS: Hemorrhage: No intraparenchymal hemorrhage or extra-axial hematoma. Brain parenchyma: Cortical simmons-white matter differentiation is preserved. No mass effect or midline shift. Basilar cisterns are patent.Stable chronic small vessel ischemic changes of the white matter Ventricular system: Ventricles and sulci are patent and symmetric. Calvarium: Intact. Sinuses and mastoid air cells: Mucosal thickening involving the ethmoid air cells, sphenoid sinuses a nd right maxillary sinus. Adequate bilateral mastoid air cell aeration IMPRESSION: 1. No intracranial post traumatic sequelae.
[2020-05-21] MEDS ORDERED: Ketorolac Tromethamine 30 MG/ML VIAL ONE (11:30)
--- NOTE | 2020-05-21 11:34 | CT ---
CT cervical spine noncontrast HISTORY: Fall. Injury. COMPARISON: 92,020. FINDINGS: Vertebral body heights are maintained. Minimal degenerative spondylolisthesis at the C5-6 l evel is stable. Mild leftward convex rotatory scoliotic curvature. Cervicothoracic junction is intact. No acute fracture or dislocation of the cervical spine are eviden t. Old healed fracture of the posterior aspect of left first rib is now better demonstrated. There is osteophytosis throughout the vertebral bodies and facets. Central canal and foraminal stenos es similar in appearance to the prior exam. IMPRESSION : Degenerative changes cervical spine. No acute osseous abnormalities are demonstrated.
--- NOTE | 2020-05-21 14:25 | RAD ---
Exam:Right shoulder 2 views HISTORY: Pain. Fall. COMPARISON: 05/21/2020 at 10:35 AM FINDINGS: External and internal rotation views of the right shoulder are submitted for interpretation . Chronic degenerative changes. No dislocation or fracture. IMPRESSION: No fracture or dislocation.
--- NOTE | 2020-05-24 07:29 | RAD ---
EXAM: 2 views of the right shoulder HISTORY: Shoulder pain COMPARISON: None FINDINGS: There is no evidence of acute fracture or dislocation. Mild acromioclavicular degenerative changes are seen. Increased interstitial markings are seen in the lungs. Biapical pleural thickening is seen. 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
== END 2020-05-21 15:46 | disposition home or self-care (01) ==
LOC: ERS 09:49
DX: M25.511 Pain in right shoulder (principal); M25.552 Pain in left hip; E11.9 Type 2 diabetes mellitus without complications; E05.90 Thyrotoxicosis, unspecified without thyrotoxic crisis or storm; E78.5 Hyperlipidemia, unspecified; I10 Essential (primary) hypertension; W19.XXXA Unspecified fall, initial encounter; Z79.82 Long term (current) use of aspirin; Z79.899 Other long term (current) drug therapy; Z79.891 Long term (current) use of opiate analgesic; Z79.4 Long term (current) use of insulin
CPT/HCPCS: 36415; 70450; 71045; 72125; 72170; 80053; 85025; 96374; J1885

== ENCOUNTER 2020-07-01 21:28 | Observation (INO) | payer MEDICARE ==
[2020-07-01 22:10] VITALS: BMI 28.1
[2020-07-01] MEDS ORDERED: Promethazine HCl 25 MG/ML VIAL SLOW IVP PRN (22:11)
[2020-07-01] MEDS ORDERED: Ondansetron HCl/PF 4 MG/2 ML Vial IVP PRN (22:11)
[2020-07-01] MEDS ORDERED: Morphine Sulfate 2 MG/ML SYRINGE SLOW IVP PRN (22:11)
[2020-07-01] MEDS ORDERED: Meperidine HCl/PF 25 MG/ML VIAL SLOW IVP PRN (22:11)
[2020-07-01] MEDS ORDERED: Promethazine HCl 25 MG/ML VIAL IM PRN (22:11)
[2020-07-01] MEDS ORDERED: Fentanyl 250 MCG/5 ML VIAL ONE (22:15)
[2020-07-01] MEDS ORDERED: Sodium Chloride 0.9% 40 ML ONE (22:29)
[2020-07-01] MEDS ORDERED: Gentamicin 80 MG/2 ML VIAL ONE (22:29)
[2020-07-01] MEDS ORDERED: Succinylcholine 200 MG/10 ml SYRINGE FS ONE (22:30)
[2020-07-01] MEDS ORDERED: diphenhydrAMINE 50 MG/ML VIAL ONE (22:30)
[2020-07-01] MEDS ORDERED: PROPOFOL 200 MG/20 ML VIAL ONE (22:30)
[2020-07-01] MEDS ORDERED: Lidocaine 1% PF 5 ML VIAL ONE (22:30)
[2020-07-01] MEDS ORDERED: PHENYLEPHRINE-NS 100 MCG/ML 10 ML SYRINGE ONE (22:30)
[2020-07-01] MEDS ORDERED: Bupivacaine PF 0.5% 30 ML VIAL ONE (22:30)
[2020-07-01] MEDS ORDERED: Bacitracin Zinc Ointment 30 gm TUBE ONE (22:30)
[2020-07-01] MEDS ORDERED: Ondansetron PF 4 MG/2 ML Vial ONE (22:30)
[2020-07-02] MEDS ORDERED: Mineral Oil Sterile 10ML 10 ML UDCUP ONE ×2
[2020-07-02] MEDS ORDERED: Meperidine HCl/PF 25 MG/ML VIAL ONE (01:07)
[2020-07-02] MEDS ORDERED: traMADol HCl 50 MG TAB PO PRN (01:15)
[2020-07-02] MEDS ORDERED: Acetaminophen 325 MG TAB PO PRN (01:15)
[2020-07-02] MEDS ORDERED: Milk Of Magnesia 30 ML UDCUP PO PRN (01:15)
[2020-07-02] MEDS ORDERED: Bisacodyl 10 MG SUPP PR PRN (01:15)
[2020-07-02] MEDS ORDERED: Ondansetron PF 4 MG/2 ML Vial SLOW IVP PRN (01:15)
[2020-07-02] MEDS ORDERED: Communication Order-Pharmacy FS SCH (01:15)
[2020-07-02] MEDS ORDERED: Fentanyl 100 MCG/2 ML VIAL ONE (01:15)
[2020-07-02] MEDS ORDERED: Sodium Chloride 0.9% 1,000 ML IV SCH (01:15)
[2020-07-02] MEDS ORDERED: Morphine 4 MG/ML VIAL SLOW IVP PRN (01:15)
[2020-07-02 06:00] LABS: #Eosinphils 0.5 thou/uL (0.0-0.7); #Lymphocytes 1.9 thou/uL (1.20-3.40); #Monocytes 0.7 thou/uL (0.11-0.59); #Neutrophils 6.4 thou/uL (1.40-6.50); %Basophils 0.4 % (0.0-1.0); %Lymphocytes 19.9 % (21.0-51.0); %Monocytes 7.5 % (0.0-10.0); %Neutrophils 67.2 % (42.0-75.0); Hemoglobin 11.2 g/dL (14.0-18.0); Mean Corpuscular HGB CONC 33.1 g/dL (32.0-36.0); Mean Corpuscular Hemoglobin 30.7 pg (27.0-31.0); Mean Corpuscular Volume 92.6 fL (78.0-98.0); Mean Platelet Volume 7.1 fL (7.4-10.4); Platelet Count 250 thou/uL (130-400); RBC Distribution Width 12.5 % (11.5-14.5); Red Blood Cell (RBC) Count 3.64 mill/uL (4.70-6.10); White Blood Cell (WBC) Count 9.5 thou/uL (4.8-10.8)
[2020-07-02 06:22] LABS: ALT (SGPT) 9 U/L (8-55); AST (SGOT) 12 U/L (5-34); Albumin 3.2 g/dL (3.4-4.8); Alkaline Phosphatase 102 U/L (40-110); Anion Gap 14 mmol/L (10-20); BUN (Urea Nitrogen) 18 mg/dL (8.4-25.7); Bilirubin, Total 0.3 mg/dL (0.2-1.2); Calc. Creatinine Clearance 101 mL/min (70-130); Calcium 8.5 mg/dL (7.8-10.44); Carbon Dioxide 22 mmol/L (23-31); Chloride 107 mmol/L (98-107); Globulin 2.9 g/dL (2.4-3.5); Glucose 161 mg/dL (83-110); Potassium 4.4 mmol/L (3.5-5.1); Protein, Total 6.1 g/dL (5.8-8.1); Sodium 139 mmol/L (136-145)
[2020-07-02 06:23] LABS: SARS-CoV-2 MS2 Positive; SARS-CoV-2 N Gene Negative; SARS-CoV-2 S Gene Negative; SARS-CoV-2 by NAA Not Detected (NotDetected); SARS-CoV-2 orf1ab Negative
[2020-07-02] MEDS: HYDROcodone/Acetaminophen 5/325 mg Tablet PO PRN ×3 (07:50→17:23)
[2020-07-02] MEDS ORDERED: Dextrose 50% Abboject 50 ML SYRINGE SLOW IVP PRN (08:31)
[2020-07-02] MEDS ORDERED: Dextrose 5% in Water 1,000 ML IV PRN (08:31)
--- NOTE | 2020-07-02 08:39 | RAD ---
FINGERS LEFT HAND: Three fluoroscopic images from OR presented. INDICATION: Intraoperative imaging during open reduction internal fixation left thumb and index finger. FINDINGS/IMPRESSION: Images demonstrate pins transfixing the DIP joint of the index finger. POS: [facility]
[2020-07-02] MEDS ORDERED: Aspirin 81 mg Enteric Coated Tablet PO SCH (09:00)
[2020-07-02] MEDS ORDERED: TETANUS AND DIPHTHERIA TOX/PF 0.5 ML DISP.SYRIN IM SCH (09:00)
[2020-07-02 11:30] VITALS: BP 112/66; TEMP 98.7
[2020-07-02] MEDS: HumaLOG 300 UNITS/3 ML VIAL SC PRN ×2 (12:07→17:17)
--- NOTE | 2020-07-05 14:26 | OP ---
DATE OF PROCEDURE: 07/01/2020 PREOPERATIVE DIAGNOSES: 1. Left thumb 5 cm wound. 2. Left index finger open distal phalanx fracture, open middle phalanx neck fracture, and nailbed laceration. PROCEDURES PERFORMED: 1. Left thumb debridement of wound. 2. Closure of wound, left thumb, 5.0 cm. 3. Left index finger: a. Debridement of wound. b. Debridement of material associated with open fracture. c. Nailbed repair. d. Nail removal under anesthesia . e. C-arm supervision by the surgeon. f. Wound closure, 5 cm. g. Split-thickness skin graft, 1.5 x 1 cm. INDICATION: The patient was involved in an accident at home with a saw. DESCRIPTION OF PROCEDURE: After successful general anesthesia, the patient's limb was prepped and draped. We then did a time-out. We then inspected the wound and found no gross contamination, except for a mild amount of gross in one corner of the wound. This was at the left index finger. The nailbed wound was fairly superficial, but first, we extended it 1 cm in each direction and found no neurovascular structure involvement. No tendon was lacerated. So we then debrided the wound down to but not including the fascia, using excisional technique, and using tenotomy scissors, Philpot blade, and 11-blade knife, and irrigation. We closed this left thumb wound with interrupted 4-0 Monocryl deep dermis and for the second portion a multilayer closure using 4-0 nylon. At the left index finger, we extended the 5 cm incision an additional 1 cm in each direction. We first noticed that it involved the nailbed, so removed the nail. We debrided the distal end first of the wound using the same techniques and instruments used for the thumb nailbed. We then irrigated with 3 L Pulsavac with antibiotics inside. After debridement of the wound as well as debridement of the material associated with the open fracture where the fracture was complex involving an avulsion in the sagittal plane of the base of the thumb and a saw injury through the joint and subcutaneous bone injury of the digit. After debridement, because it was so comminuted, we had to pass a K-wire interosseous distally across the joint and then pinned this in place. Then, to make the other portion match the opposite side, we then performed appropriate irrigation and then closure. A bulky dressing was applied, and the patient left the operating room after we had to use a 1.5 to 1.0 cm split-thickness skin graft harvested from the antecubital fossa, where the donor site was closed, because of skin and subcutaneous tissue to include epidermal loss was seen at the . Job ID: [id number]
--- NOTE | 2020-07-20 06:03 | PQF ---
[facility] POST DISCHARGE CLINICAL DOCUMENTATION IMPROVEMENT CLARIFICATION FORM Todays Date: 07/20/20 Patients Name BRO FRANZ SR Admit Date 07/02/20 Disch Date 07/02/20 Banana Grader Name Kirt Hutchison Email: [email or web address]: [phone] To be completed by Banana Grader: Present Clinical Indicators - Signs / Symptoms Results and Location in Medical Record [ ] Documentation of: [ ] [ ] Documentation of: [ ] [ ] Documentation of: [ ] [ ] Documentation of: [ ] [ ] Risks [ ] [ ] [ ] Treatment [ ] Left thumb wound Query for area (sq cm) of debridement of L thumb [ ] [ ] To be completed by Physician: BRITTANY KEN The documentation in this patients record requires clarification to ensure coding compliance and accuracy. Check the appropriate box and include in your discharge summary. [ ] [ ] [ ] [ ] Please check this box if this does not apply to this patient [ ] Unable to determine [ ] Other diagnosis: Review the following information and exercise your independent professional judgment in responding to the clarification. Based upon the clinical findings, risk factors, and treatment, please clarify if you are treating one of the above probable or suspected diagnoses. Physician Signature: Date Time MTDD
== END 2020-07-02 19:45 | disposition home or self-care (01) ==
LOC: SDC 21:28 → SURG A 21:28 → SDC 07-02 01:14 → SURG A 07-02 01:15
PROVIDERS: ADMIT Orthopaedic Surgery Hand Surgery; ATTEND Orthopaedic Surgery Hand Surgery
PROC: 0PBV0ZZ Excision of Left Finger Phalanx, Open Approach (ICD-10-PCS; principal; 2020-07-01)
PROC: 0HTQXZZ Resection of Finger Nail, External Approach (ICD-10-PCS; 2020-07-01)
PROC: 0HRGX74 Replacement of Left Hand Skin with Autologous Tissue Substitute, Partial Thickness, External Approach (ICD-10-PCS; 2020-07-01)
PROC: 0JQK0ZZ Repair Left Hand Subcutaneous Tissue and Fascia, Open Approach (ICD-10-PCS; 2020-07-01)
PROC: 0PSV34Z Reposition Left Finger Phalanx with Internal Fixation Device, Percutaneous Approach (ICD-10-PCS; 2020-07-01)
DX: S62.631B Displaced fracture of distal phalanx of left index finger, initial encounter for open fracture (principal); S62.621B Displaced fracture of middle phalanx of left index finger, initial encounter for open fracture; S61.002A Unspecified open wound of left thumb without damage to nail, initial encounter; Z79.02 Long term (current) use of antithrombotics/antiplatelets; Z79.4 Long term (current) use of insulin; Z79.899 Other long term (current) drug therapy; Z88.0 Allergy status to penicillin; Z95.5 Presence of coronary angioplasty implant and graft; Z20.828 Contact with and (suspected) exposure to other viral communicable diseases; W27.0XXA Contact with workbench tool, initial encounter
CPT/HCPCS: 11012; 11750; 12002; 15120; 26756; 73140; 76000; 80053; 82962; 85025; G0378; U0003; 36415; 36416; 87635; J1200; J1580; J2175; J2405; J2704; J3010; J3370; J3490; S0020

== ENCOUNTER 2020-12-28 15:22 | Emergency (ER) | payer MEDICARE ==
[~2020-12-28 15:22] MED LIST changes: -ISOVUE-370 76%-LOCM 1 ML ONE; +Iopamidol-370 76% 500 ML 1 ML ONE
[2020-12-28 17:01] LABS: #Eosinphils 0.3 thou/uL (0.0-0.7); #Monocytes 0.7 thou/uL (0.11-0.59); #Neutrophils 6.7 thou/uL (1.40-6.50); %Basophils 0.5 % (0.0-1.0); %Eosinophils 3.2 % (0.0-10.0); %Lymphocytes 20.9 % (21.0-51.0); %Monocytes 6.9 % (0.0-10.0); %Neutrophils 68.5 % (42.0-75.0); Mean Corpuscular HGB CONC 33.3 g/dL (32.0-36.0); Mean Corpuscular Hemoglobin 30.6 pg (27.0-31.0); Mean Corpuscular Volume 91.8 fL (78.0-98.0); Mean Platelet Volume 6.9 fL (7.4-10.4); Platelet Count 325 thou/uL (130-400); RBC Distribution Width 13.5 % (11.5-14.5); Red Blood Cell (RBC) Count 4.26 mill/uL (4.70-6.10); White Blood Cell (WBC) Count 9.8 thou/uL (4.8-10.8)
[2020-12-28] MEDS ORDERED: Ondansetron PF 4 MG/2 ML Vial ONE (17:20)
[2020-12-28] MEDS ORDERED: Morphine 4 MG/ML VIAL ONE (17:20)
[2020-12-28 17:28] LABS: ALT (SGPT) 12 U/L (8-55); AST (SGOT) 13 U/L (5-34); Albumin 3.9 g/dL (3.4-4.8); Alkaline Phosphatase 140 U/L (40-110); Anion Gap 16 mmol/L (10-20); BUN (Urea Nitrogen) 26 mg/dL (8.4-25.7); Bilirubin, Total 0.3 mg/dL (0.2-1.2); Calc. Creatinine Clearance 0 mL/min (70-130); Calcium 9.5 mg/dL (7.8-10.44); Carbon Dioxide 21 mmol/L (23-31); Chloride 98 mmol/L (98-107); Globulin 3.8 g/dL (2.4-3.5); Glucose 446 mg/dL (83-110); Lipase 9 U/L (8-78); Potassium 4.8 mmol/L (3.5-5.1); Protein, Total 7.7 g/dL (5.8-8.1); Sodium 130 mmol/L (136-145)
[2020-12-28 17:51] LABS: Bilirubin Negative (Negative); Blood, Urine 1+ (Negative); Clarity Clear (Clear); Glucose, Urine (Dipstick) Greater than 1000 mg/dL (Negative); Ketone, Urine Negative (Negative); Leukocyte 500 Leu/uL (Negative); Nitrite Negative (Negative); Protein, Urine (Dipstick) Negative (Neg-Trace); Specific Gravity, Urine 1.016 (1.002-1.036); Squamous Epithelial 0-3 HPF (0-3); Urobilinogen Normal mg/dL (Less than 2); WBC/HPF 21-50 HPF (0-3)
[2020-12-28 17:53] LABS: Bacteria/HPF Rare-Few HPF (None Seen)
[2020-12-28] MEDS ORDERED: traMADol HCl 50 MG TAB ONE (19:46)
[2020-12-28 20:05] LABS: Lactic Acid 1.7 mmol/L (0.5-2.2)
== END 2020-12-28 19:54 | disposition home or self-care (01) ==
LOC: ERS 15:22
DX: A08.4 Viral intestinal infection, unspecified (principal); M54.9 Dorsalgia, unspecified; E05.90 Thyrotoxicosis, unspecified without thyrotoxic crisis or storm; E78.5 Hyperlipidemia, unspecified; I10 Essential (primary) hypertension
CPT/HCPCS: 36415; 74177; 80053; 81003; 81015; 83605; 83690; 85025; 96374; 96375; J2270; J2405; Q9967

== ENCOUNTER 2021-05-31 15:04 | Emergency (ER) | payer MEDICARE ==
[2021-05-31 16:31] LABS: #Basophils 0.1 thou/uL (0.0-0.2); #Eosinphils 0.3 thou/uL (0.0-0.7); #Lymphocytes 1.8 thou/uL (1.20-3.40); #Monocytes 0.7 thou/uL (0.11-0.59); #Neutrophils 9.2 thou/uL (1.40-6.50); %Basophils 0.5 % (0.0-1.0); %Eosinophils 2.3 % (0.0-10.0); %Lymphocytes 14.6 % (21.0-51.0); %Monocytes 5.7 % (0.0-10.0); %Neutrophils 76.9 % (42.0-75.0); Hemoglobin 12.9 g/dL (14.0-18.0); Mean Corpuscular HGB CONC 34.9 g/dL (32.0-36.0); Mean Corpuscular Hemoglobin 31.7 pg (27.0-31.0); Mean Corpuscular Volume 90.7 fL (78.0-98.0); Mean Platelet Volume 7.6 fL (7.4-10.4); Platelet Count 389 thou/uL (130-400); RBC Distribution Width 12.8 % (11.5-14.5); Red Blood Cell (RBC) Count 4.06 mill/uL (4.70-6.10)
[2021-05-31 16:53] LABS: ALT (SGPT) 10 U/L (8-55); AST (SGOT) 11 U/L (5-34); Albumin 3.8 g/dL (3.4-4.8); Alkaline Phosphatase 163 U/L (40-110); Anion Gap 16 mmol/L (10-20); BUN (Urea Nitrogen) 19 mg/dL (8.4-25.7); Bilirubin, Total 0.3 mg/dL (0.2-1.2); Calc. Creatinine Clearance 0 mL/min (70-130); Calcium 9.7 mg/dL (7.8-10.44); Carbon Dioxide 23 mmol/L (23-31); Chloride 95 mmol/L (98-107); Globulin 3.6 g/dL (2.4-3.5); Lipase 4 U/L (8-78); Potassium 5.4 mmol/L (3.5-5.1); Protein, Total 7.4 g/dL (5.8-8.1); Sodium 129 mmol/L (136-145)
[2021-05-31 17:04] LABS: Glucose 551 mg/dL (83-110)
[2021-05-31] MEDS ORDERED: Lorazepam 2 MG/ML VIAL ONE (17:14)
[2021-05-31 18:42] LABS: Bilirubin Negative (Negative); Blood, Urine 3+ (Negative); Clarity Clear (Clear); Glucose, Urine (Dipstick) Greater than 1000 mg/dL (Negative); Ketone, Urine Negative (Negative); Leukocyte 500 Leu/uL (Negative); Nitrite Negative (Negative); Protein, Urine (Dipstick) Negative (Neg-Trace); Specific Gravity, Urine 1.009 (1.002-1.036); Squamous Epithelial 0-3 HPF (0-3); Urobilinogen Normal mg/dL (Less than 2); WBC/HPF 21-50 HPF (0-3); pH, Urine 6.5 (5.0-9.0)
[2021-05-31 18:43] LABS: Bacteria/HPF 1+ HPF (None Seen)
== END 2021-05-31 19:33 | disposition home or self-care (01) ==
LOC: ERS 15:04
DX: N32.89 Other specified disorders of bladder (principal); M25.551 Pain in right hip; M25.552 Pain in left hip; M54.9 Dorsalgia, unspecified; G89.29 Other chronic pain; I10 Essential (primary) hypertension; E11.9 Type 2 diabetes mellitus without complications; E03.9 Hypothyroidism, unspecified; E78.5 Hyperlipidemia, unspecified; Z95.5 Presence of coronary angioplasty implant and graft
CPT/HCPCS: 36415; 51701; 74177; 80053; 81003; 81015; 82550; 83690; 85025; 87086; 96374; J2060; Q9967

== ENCOUNTER 2021-06-21 04:15 | Inpatient (IN) | payer MEDICARE ==
[2021-06-21] MEDS ORDERED: HYDROcodone/Acetaminophen 10/325 mg Tablet PO PRN (05:54)
[2021-06-21] MEDS ORDERED: Ondansetron ODT 4 MG TAB PO PRN (08:07)
[2021-06-21] MEDS ORDERED: Ondansetron PF 4 MG/2 ML Vial IVP PRN (08:07)
[2021-06-21] MEDS ORDERED: Morphine 4 MG/ML VIAL SLOW IVP SCH (08:15)
[2021-06-21] MEDS ORDERED: Dextrose 50% Abboject 50 ML SYRINGE SLOW IVP PRN (09:41)
[2021-06-21] MEDS ORDERED: Dextrose 5% in Water 1,000 ML IV PRN (09:41)
[2021-06-21] MEDS: Oxybutynin ER 5 MG TAB PO SCH (09:56)
[2021-06-21 10:23] LABS: Hemoglobin 11.6 g/dL (14.0-18.0)
[2021-06-21] MEDS: HYDROcodone/Acetaminophen 10/325 mg Tablet PO PRN ×2 (12:18→17:50)
[2021-06-21] MEDS: HumaLOG 300 UNITS/3 ML VIAL SC PRN ×3 (12:18→20:54)
[2021-06-21 17:00] LABS: Hemoglobin 11.1 g/dL (14.0-18.0)
[2021-06-21] MEDS: PARoxetine 20 MG TAB PO SCH (20:36)
[2021-06-21] MEDS: Atorvastatin Calcium 40 MG TAB PO SCH (20:38)
[2021-06-21] MEDS: Folic Acid 1 MG TAB PO SCH (20:38)
[2021-06-21] MEDS ORDERED: FOLIC ACID 0.8 MG PO SCH (21:00)
[2021-06-21] MEDS: Pramipexole Di-HCl 0.25 MG TAB PO SCH (21:27)
[2021-06-21] MEDS: Hyoscyamine Sulfate SL 0.125 mg Tablet PO PRN (21:27)
[2021-06-21 22:47] LABS: Hemoglobin 10.2 g/dL (14.0-18.0)
[2021-06-22] MEDS: HYDROcodone/Acetaminophen 10/325 mg Tablet PO PRN ×4 (00:13→22:00)
[2021-06-22] MEDS ORDERED: Morphine 4 MG/ML VIAL SLOW IVP PRN (06:07)
[2021-06-22 06:12] LABS: #Lymphocytes 1.8 thou/uL (1.20-3.40); #Monocytes 0.7 thou/uL (0.11-0.59); #Neutrophils 11.9 thou/uL (1.40-6.50); %Basophils 0.3 % (0.0-1.0); %Eosinophils 0.1 % (0.0-10.0); %Lymphocytes 12.6 % (21.0-51.0); %Monocytes 4.9 % (0.0-10.0); %Neutrophils 82.1 % (42.0-75.0); Hemoglobin 9.3 g/dL (14.0-18.0); Mean Corpuscular HGB CONC 33.9 g/dL (32.0-36.0); Mean Corpuscular Hemoglobin 30.6 pg (27.0-31.0); Mean Corpuscular Volume 90.4 fL (78.0-98.0); Mean Platelet Volume 6.9 fL (7.4-10.4); Platelet Count 399 thou/uL (130-400); RBC Distribution Width 12.3 % (11.5-14.5); Red Blood Cell (RBC) Count 3.03 mill/uL (4.70-6.10); White Blood Cell (WBC) Count 14.5 thou/uL (4.8-10.8)
[2021-06-22 06:23] LABS: Anion Gap 16 mmol/L (10-20); BUN (Urea Nitrogen) 38 mg/dL (8.4-25.7); Calc. Creatinine Clearance 44 mL/min (70-130); Calcium 9.8 mg/dL (7.8-10.44); Carbon Dioxide 20 mmol/L (23-31); Chloride 95 mmol/L (98-107); Glucose 435 mg/dL (83-110); Potassium 6.1 mmol/L (3.5-5.1); Sodium 125 mmol/L (136-145)
[2021-06-22] MEDS: HumaLOG 300 UNITS/3 ML VIAL SC PRN ×2 (06:39→12:22)
[2021-06-22] MEDS ORDERED: VITAMIN A 2400 MCG PO SCH ×2 (09:00)
[2021-06-22] MEDS ORDERED: Potassium Chloride 20 MEQ TAB PO SCH (09:00)
[2021-06-22] MEDS ORDERED: Non-Formulary Item 1 EACH (Losartan Potassium [Losartan Potassium] 100 MG Tablet) PO SCH (09:00)
[2021-06-22] MEDS ORDERED: FERROUS SULFATE 47.5 MG PO SCH (09:00)
[2021-06-22] MEDS: Allopurinol 300 MG TAB PO SCH (09:35)
[2021-06-22] MEDS: Pramipexole Di-HCl 0.125 MG TAB PO SCH (09:35)
[2021-06-22] MEDS: Docusate 100 MG CAP PO SCH (09:35)
[2021-06-22] MEDS: Oxybutynin ER 5 MG TAB PO SCH (09:35)
[2021-06-22] MEDS: PARoxetine 20 MG TAB PO SCH ×2 (09:36→20:52)
[2021-06-22] MEDS: Levothyroxine Sodium 112 MCG TAB PO SCH (09:36)
[2021-06-22] MEDS: Folic Acid 1 MG TAB PO SCH ×2 (09:36→21:00)
[2021-06-22] MEDS: Lantus 1000 UNITS/10 ML VIAL SC SCH (09:37)
[2021-06-22] MEDS: Ferrous Sulfate 325 MG TAB PO SCH (09:37)
[2021-06-22] MEDS: Losartan 25 MG TAB PO SCH (09:37)
[2021-06-22] MEDS: Levothyroxine Sodium 25 MCG TAB PO SCH (09:51)
[2021-06-22] MEDS ORDERED: Calcium Gluc 4.6 MEQ/10 ML (100 MG/ML) SLOW IVP SCH (12:24)
[2021-06-22] MEDS ORDERED: Insulin Regular 300 UNITS/3 ML VIAL IVP SCH (12:30)
[2021-06-22] MEDS ORDERED: Dextrose 50% Abboject 50 ML SYRINGE SLOW IVP SCH (12:45)
[2021-06-22] MEDS ORDERED: Sodium Chloride 0.9% 1,000 ML IV SCH (15:15)
[2021-06-22 15:42] LABS: Anion Gap 17 mmol/L (10-20); BUN (Urea Nitrogen) 39 mg/dL (8.4-25.7); Calc. Creatinine Clearance 53 mL/min (70-130); Calcium 10.6 mg/dL (7.8-10.44); Carbon Dioxide 18 mmol/L (23-31); Chloride 99 mmol/L (98-107); Glucose 169 mg/dL (83-110); Potassium 5.2 mmol/L (3.5-5.1); Sodium 129 mmol/L (136-145)
[2021-06-22] MEDS: Hyoscyamine Sulfate SL 0.125 mg Tablet PO PRN (16:28)
[2021-06-22] MEDS ORDERED: Baclofen 10 MG TAB PO SCH (19:34)
[2021-06-22] MEDS: Atorvastatin Calcium 40 MG TAB PO SCH (20:52)
[2021-06-22] MEDS: Pramipexole Di-HCl 0.25 MG TAB PO SCH (20:52)
[2021-06-23] MEDS ORDERED: Ziprasidone 20 MG VIAL IM SCH (01:48)
[2021-06-23] MEDS ORDERED: Sterile Water 10 ML VIAL FS PRN (02:00)
[2021-06-23 03:17] LABS: #Lymphocytes 1.8 thou/uL (1.20-3.40); #Monocytes 0.9 thou/uL (0.11-0.59); #Neutrophils 11.4 thou/uL (1.40-6.50); %Basophils 0.2 % (0.0-1.0); %Eosinophils 0.2 % (0.0-10.0); %Lymphocytes 12.9 % (21.0-51.0); %Monocytes 6.3 % (0.0-10.0); %Neutrophils 80.4 % (42.0-75.0); Hemoglobin 8.5 g/dL (14.0-18.0); Mean Corpuscular HGB CONC 35.5 g/dL (32.0-36.0); Mean Corpuscular Hemoglobin 31.6 pg (27.0-31.0); Mean Platelet Volume 6.7 fL (7.4-10.4); Platelet Count 352 thou/uL (130-400); RBC Distribution Width 12.4 % (11.5-14.5); Red Blood Cell (RBC) Count 2.67 mill/uL (4.70-6.10); White Blood Cell (WBC) Count 14.2 thou/uL (4.8-10.8)
[2021-06-23 03:39] LABS: ALT (SGPT) 16 U/L (8-55); AST (SGOT) 32 U/L (5-34); Albumin 3.6 g/dL (3.4-4.8); Alkaline Phosphatase 107 U/L (40-110); Anion Gap 15 mmol/L (10-20); BUN (Urea Nitrogen) 37 mg/dL (8.4-25.7); Bilirubin, Total 0.5 mg/dL (0.2-1.2); Calc. Creatinine Clearance 61 mL/min (70-130); Calcium 9.9 mg/dL (7.8-10.44); Carbon Dioxide 19 mmol/L (23-31); Chloride 98 mmol/L (98-107); Globulin 3.5 g/dL (2.4-3.5); Glucose 174 mg/dL (83-110); Potassium 4.9 mmol/L (3.5-5.1); Protein, Total 7.1 g/dL (5.8-8.1); Sodium 127 mmol/L (136-145)
[2021-06-23] MEDS ORDERED: Morphine 4 MG/ML VIAL SLOW IVP SCH ×2 (05:15→12:30)
[2021-06-23] MEDS: Cefepime 2 GM in Sodium Chloride 0.9% 100 ML IVPB SCH ×2 (05:20→14:39)
[2021-06-23 06:10] LABS: Bilirubin Negative (Negative); Blood, Urine Large (Negative); Clarity Hazy (Clear); Glucose, Urine (Dipstick) Negative (Negative); Ketone, Urine Negative (Negative); Leukocyte Negative (Negative); Nitrite Negative (Negative); Protein, Urine (Dipstick) 30 mg/dL (Neg-Trace); Urobilinogen 0.2 mg/dL (Less than 2)
[2021-06-23 06:11] LABS: Specific Gravity, Urine 1.006 (1.002-1.036)
[2021-06-23 06:12] LABS: Urine Culture Reflex No No
[2021-06-23 06:13] LABS: RBC/HPF Greater than 50 HPF (0-3); Squamous Epithelial 0-3 HPF (0-3)
[2021-06-23] MEDS: Docusate 100 MG CAP PO SCH ×2 (08:05→11:27)
[2021-06-23] MEDS: Ferrous Sulfate 325 MG TAB PO SCH ×2 (08:05→11:27)
[2021-06-23] MEDS: Oxybutynin ER 5 MG TAB PO SCH ×2 (08:06→11:30)
[2021-06-23] MEDS: PARoxetine 20 MG TAB PO SCH ×3 (08:06→20:56)
[2021-06-23] MEDS: Losartan 25 MG TAB PO SCH ×2 (08:06→11:30)
[2021-06-23] MEDS: Allopurinol 300 MG TAB PO SCH ×2 (08:06→11:27)
[2021-06-23] MEDS: Folic Acid 1 MG TAB PO SCH ×3 (08:06→20:56)
[2021-06-23] MEDS: Levothyroxine Sodium 25 MCG TAB PO SCH ×2 (08:07→11:29)
[2021-06-23] MEDS: Levothyroxine Sodium 112 MCG TAB PO SCH ×2 (08:07→11:29)
[2021-06-23] MEDS: Lantus 1000 UNITS/10 ML VIAL SC SCH (08:09)
[2021-06-23] MEDS: Pramipexole Di-HCl 0.125 MG TAB PO SCH ×2 (08:18→11:30)
[2021-06-23] MEDS ORDERED: Morphine 4 MG/ML VIAL SLOW IVP PRN (10:40)
[2021-06-23] MEDS ORDERED: Fentanyl 100 MCG/2 ML VIAL SLOW IVP PRN (12:24)
[2021-06-23] MEDS ORDERED: Fentanyl 100 MCG/2 ML VIAL ONE (12:51)
[2021-06-23] MEDS: Fentanyl 100 MCG/2 ML VIAL SLOW IVP PRN (12:57)
[2021-06-23] MEDS ORDERED: Sodium Chloride 0.9% 1,000 ML IV SCH (13:15)
[2021-06-23] MEDS ORDERED: Dexmedetomidine 1,000 MCG in Sodium Chloride 0.9% 250 ML 240 ML IVPB SCH (13:45)
[2021-06-23] MEDS: Pramipexole Di-HCl 0.25 MG TAB PO SCH (20:56)
[2021-06-23] MEDS: Atorvastatin Calcium 40 MG TAB PO SCH (20:56)
[2021-06-24] MEDS: Cefepime 2 GM in Sodium Chloride 0.9% 100 ML IVPB SCH ×2 (02:49→14:26)
[2021-06-24 07:20] LABS: Mean Corpuscular HGB CONC 34.2 g/dL (32.0-36.0); Mean Corpuscular Hemoglobin 31.3 pg (27.0-31.0); Mean Corpuscular Volume 91.6 fL (78.0-98.0); Mean Platelet Volume 6.3 fL (7.4-10.4); Platelet Count 316 thou/uL (130-400); RBC Distribution Width 12.5 % (11.5-14.5); Red Blood Cell (RBC) Count 2.24 mill/uL (4.70-6.10)
[2021-06-24 07:22] LABS: ALT (SGPT) 14 U/L (8-55); AST (SGOT) 21 U/L (5-34); Albumin 2.9 g/dL (3.4-4.8); Alkaline Phosphatase 85 U/L (40-110); Anion Gap 11 mmol/L (10-20); BUN (Urea Nitrogen) 25 mg/dL (8.4-25.7); Bilirubin, Total 0.4 mg/dL (0.2-1.2); Calc. Creatinine Clearance 105 mL/min (70-130); Calcium 8.7 mg/dL (7.8-10.44); Carbon Dioxide 21 mmol/L (23-31); Chloride 106 mmol/L (98-107); Globulin 2.9 g/dL (2.4-3.5); Glucose 160 mg/dL (83-110); Phosphorus 2.6 mg/dL (2.3-4.7); Potassium 4.8 mmol/L (3.5-5.1); Protein, Total 5.8 g/dL (5.8-8.1); Sodium 133 mmol/L (136-145)
[2021-06-24 07:52] LABS: #Lymphocytes 1.1 thou/uL (1.20-3.40); #Monocytes 0.9 thou/uL (0.11-0.59); #Neutrophils 15.9 thou/uL (1.40-6.50); %Basophils 0.2 % (0.0-1.0); %Eosinophils 0.2 % (0.0-10.0); %Lymphocytes 6.2 % (21.0-51.0); %Neutrophils 88.4 % (42.0-75.0); Anisocytosis SLIGHT = 6-15 cells (100X) (0-5/hpf); MDiff Complete? YES; Platelet Morphology Comment Appears Adequate; Polychromasia SLIGHT = 2-3 cells (100X) (0-2/hpf); Small Platelets SLIGHT
[2021-06-24] MEDS: Ferrous Sulfate 325 MG TAB PO SCH (09:00)
[2021-06-24] MEDS: Pramipexole Di-HCl 0.125 MG TAB PO SCH (09:00)
[2021-06-24] MEDS: Folic Acid 1 MG TAB PO SCH ×2 (09:00→20:48)
[2021-06-24] MEDS: Docusate 100 MG CAP PO SCH (09:00)
[2021-06-24] MEDS: Levothyroxine Sodium 112 MCG TAB PO SCH (09:00)
[2021-06-24] MEDS: Oxybutynin ER 5 MG TAB PO SCH (09:00)
[2021-06-24] MEDS: Allopurinol 300 MG TAB PO SCH (09:00)
[2021-06-24] MEDS: PARoxetine 20 MG TAB PO SCH ×2 (09:00→20:48)
[2021-06-24] MEDS: Levothyroxine Sodium 25 MCG TAB PO SCH (09:00)
[2021-06-24] MEDS: Losartan 25 MG TAB PO SCH (09:00)
[2021-06-24] MEDS: Lantus 1000 UNITS/10 ML VIAL SC SCH (10:18)
[2021-06-24] MEDS: Fentanyl 100 MCG/2 ML VIAL SLOW IVP PRN ×3 (14:35→23:02)
[2021-06-24] MEDS: Haloperidol Lactate 5 MG/ML VIAL SLOW IVP PRN (20:48)
[2021-06-24] MEDS: Atorvastatin Calcium 40 MG TAB PO SCH (20:48)
[2021-06-24] MEDS: Pramipexole Di-HCl 0.25 MG TAB PO SCH (20:48)
[2021-06-24] MEDS: Triple Antibiotic Oint 1 GM Packet TOP SCH (21:00)
[2021-06-24] MEDS: Lorazepam 2 MG/ML VIAL SLOW IVP PRN (22:06)
[2021-06-25] MEDS ORDERED: Cefepime 2 GM VIAL ONE (02:35)
[2021-06-25] MEDS: Cefepime 2 GM in Sodium Chloride 0.9% 100 ML IVPB SCH ×2 (02:37→15:53)
[2021-06-25 04:26] LABS: #Eosinphils 0.2 thou/uL (0.0-0.7); #Lymphocytes 1.1 thou/uL (1.20-3.40); #Monocytes 0.9 thou/uL (0.11-0.59); #Neutrophils 12.6 thou/uL (1.40-6.50); %Basophils 0.1 % (0.0-1.0); %Eosinophils 1.3 % (0.0-10.0); %Lymphocytes 7.7 % (21.0-51.0); %Monocytes 5.7 % (0.0-10.0); %Neutrophils 85.1 % (42.0-75.0); Hemoglobin 7.5 g/dL (14.0-18.0); Mean Corpuscular HGB CONC 34.9 g/dL (32.0-36.0); Mean Corpuscular Hemoglobin 31.8 pg (27.0-31.0); Mean Corpuscular Volume 91.1 fL (78.0-98.0); Mean Platelet Volume 6.5 fL (7.4-10.4); Platelet Count 320 thou/uL (130-400); RBC Distribution Width 13.3 % (11.5-14.5); Red Blood Cell (RBC) Count 2.35 mill/uL (4.70-6.10); White Blood Cell (WBC) Count 14.8 thou/uL (4.8-10.8)
[2021-06-25 04:42] LABS: Anion Gap 7 mmol/L (10-20); BUN (Urea Nitrogen) 17 mg/dL (8.4-25.7); Calc. Creatinine Clearance 121 mL/min (70-130); Calcium 9.3 mg/dL (7.8-10.44); Carbon Dioxide 24 mmol/L (23-31); Chloride 110 mmol/L (98-107); Potassium 3.2 mmol/L (3.5-5.1); Sodium 138 mmol/L (136-145)
[2021-06-25 04:46] LABS: Glucose 50 mg/dL (83-110)
[2021-06-25] MEDS: Levothyroxine Sodium 25 MCG TAB PO SCH (09:42)
[2021-06-25] MEDS: Losartan 25 MG TAB PO SCH (09:42)
[2021-06-25] MEDS: Docusate 100 MG CAP PO SCH (09:42)
[2021-06-25] MEDS: Levothyroxine Sodium 112 MCG TAB PO SCH (09:42)
[2021-06-25] MEDS: Ferrous Sulfate 325 MG TAB PO SCH (09:42)
[2021-06-25] MEDS: PARoxetine 20 MG TAB PO SCH ×2 (09:42→20:11)
[2021-06-25] MEDS: Pramipexole Di-HCl 0.125 MG TAB PO SCH (09:43)
[2021-06-25] MEDS: Folic Acid 1 MG TAB PO SCH ×2 (09:43→20:13)
[2021-06-25] MEDS: Oxybutynin ER 5 MG TAB PO SCH (09:43)
[2021-06-25] MEDS ORDERED: Allopurinol 100 MG TAB ONE (09:47)
[2021-06-25] MEDS ORDERED: Allopurinol 300 MG TAB ONE (09:49)
[2021-06-25] MEDS: Allopurinol 300 MG TAB PO SCH (09:50)
[2021-06-25] MEDS: Lantus 1000 UNITS/10 ML VIAL SC SCH (10:05)
[2021-06-25] MEDS: HYDROcodone/Acetaminophen 10/325 mg Tablet PO PRN ×2 (15:53→22:09)
[2021-06-25] MEDS: Atorvastatin Calcium 40 MG TAB PO SCH (20:11)
[2021-06-25] MEDS: Pramipexole Di-HCl 0.25 MG TAB PO SCH (20:14)
[2021-06-25] MEDS: Hyoscyamine Sulfate SL 0.125 mg Tablet PO PRN (22:12)
[2021-06-25] MEDS: Lorazepam 2 MG/ML VIAL SLOW IVP PRN (23:26)
[2021-06-26] MEDS: Haloperidol Lactate 5 MG/ML VIAL SLOW IVP PRN (02:35)
[2021-06-26] MEDS: Cefepime 2 GM in Sodium Chloride 0.9% 100 ML IVPB SCH ×2 (03:24→16:41)
[2021-06-26 03:56] LABS: Hemoglobin 7.8 g/dL (14.0-18.0); Mean Corpuscular HGB CONC 34.1 g/dL (32.0-36.0); Mean Corpuscular Hemoglobin 31.2 pg (27.0-31.0); Mean Corpuscular Volume 91.3 fL (78.0-98.0); Mean Platelet Volume 6.3 fL (7.4-10.4); Platelet Count 311 thou/uL (130-400); RBC Distribution Width 13.6 % (11.5-14.5); White Blood Cell (WBC) Count 11.7 thou/uL (4.8-10.8)
[2021-06-26 04:16] LABS: Anion Gap 11 mmol/L (10-20); BUN (Urea Nitrogen) 11 mg/dL (8.4-25.7); Calc. Creatinine Clearance 119 mL/min (70-130); Calcium 9.2 mg/dL (7.8-10.44); Carbon Dioxide 21 mmol/L (23-31); Chloride 105 mmol/L (98-107); Glucose 128 mg/dL (83-110); Potassium 3.3 mmol/L (3.5-5.1); Sodium 134 mmol/L (136-145)
[2021-06-26] MEDS: PARoxetine 20 MG TAB PO SCH ×2 (10:41→20:03)
[2021-06-26] MEDS: Oxybutynin ER 5 MG TAB PO SCH (10:42)
[2021-06-26] MEDS: Levothyroxine Sodium 112 MCG TAB PO SCH (10:43)
[2021-06-26] MEDS: Allopurinol 300 MG TAB PO SCH (10:43)
[2021-06-26] MEDS: Folic Acid 1 MG TAB PO SCH ×2 (10:44→20:04)
[2021-06-26] MEDS: Levothyroxine Sodium 25 MCG TAB PO SCH (10:44)
[2021-06-26] MEDS: Losartan 25 MG TAB PO SCH (10:44)
[2021-06-26] MEDS: Docusate 100 MG CAP PO SCH (10:45)
[2021-06-26] MEDS: Pramipexole Di-HCl 0.125 MG TAB PO SCH (10:45)
[2021-06-26] MEDS: Ferrous Sulfate 325 MG TAB PO SCH (10:45)
[2021-06-26] MEDS: HYDROcodone/Acetaminophen 10/325 mg Tablet PO PRN (10:47)
[2021-06-26] MEDS: HumaLOG 300 UNITS/3 ML VIAL SC PRN ×2 (11:05→17:26)
[2021-06-26] MEDS: Atorvastatin Calcium 40 MG TAB PO SCH (20:04)
[2021-06-26] MEDS: Hyoscyamine Sulfate SL 0.125 mg Tablet PO PRN (20:04)
[2021-06-26] MEDS: Pramipexole Di-HCl 0.25 MG TAB PO SCH (20:04)
[2021-06-26] MEDS: Triple Antibiotic Oint 1 GM Packet TOP SCH (20:04)
[2021-06-27] MEDS: Haloperidol Lactate 5 MG/ML VIAL SLOW IVP PRN (01:26)
[2021-06-27] MEDS: Lorazepam 2 MG/ML VIAL SLOW IVP PRN ×2 (01:40→21:19)
[2021-06-27] MEDS: Cefepime 2 GM in Sodium Chloride 0.9% 100 ML IVPB SCH ×2 (02:23→21:02)
[2021-06-27] MEDS: HYDROcodone/Acetaminophen 10/325 mg Tablet PO PRN ×2 (03:31→20:41)
[2021-06-27 03:54] LABS: Hemoglobin 7.9 g/dL (14.0-18.0); Platelet Count 365 thou/uL (130-400)
[2021-06-27 04:16] LABS: Anion Gap 11 mmol/L (10-20); BUN (Urea Nitrogen) 12 mg/dL (8.4-25.7); Calc. Creatinine Clearance 98 mL/min (70-130); Calcium 9.3 mg/dL (7.8-10.44); Carbon Dioxide 21 mmol/L (23-31); Chloride 105 mmol/L (98-107); Glucose 199 mg/dL (83-110); Potassium 3.8 mmol/L (3.5-5.1); Sodium 133 mmol/L (136-145)
[2021-06-27] MEDS: HumaLOG 300 UNITS/3 ML VIAL SC PRN (05:26)
[2021-06-27] MEDS: Ferrous Sulfate 325 MG TAB PO SCH (11:10)
[2021-06-27] MEDS: Docusate 100 MG CAP PO SCH (11:10)
[2021-06-27] MEDS: Folic Acid 1 MG TAB PO SCH ×2 (11:10→20:31)
[2021-06-27] MEDS: Allopurinol 300 MG TAB PO SCH (11:10)
[2021-06-27] MEDS: PARoxetine 20 MG TAB PO SCH ×2 (11:11→20:35)
[2021-06-27] MEDS: Levothyroxine Sodium 25 MCG TAB PO SCH (11:11)
[2021-06-27] MEDS: Losartan 25 MG TAB PO SCH (11:11)
[2021-06-27] MEDS: Oxybutynin ER 5 MG TAB PO SCH (11:11)
[2021-06-27] MEDS: Levothyroxine Sodium 112 MCG TAB PO SCH (11:11)
[2021-06-27] MEDS: Pramipexole Di-HCl 0.125 MG TAB PO SCH (11:11)
[2021-06-27] MEDS: Atorvastatin Calcium 40 MG TAB PO SCH (20:31)
[2021-06-27] MEDS: Pramipexole Di-HCl 0.25 MG TAB PO SCH (20:35)
[2021-06-28 03:45] LABS: #Eosinphils 0.5 thou/uL (0.0-0.7); #Lymphocytes 1.4 thou/uL (1.20-3.40); #Monocytes 0.9 thou/uL (0.11-0.59); %Basophils 0.3 % (0.0-1.0); %Eosinophils 5.1 % (0.0-10.0); %Monocytes 10.4 % (0.0-10.0); %Neutrophils 68.2 % (42.0-75.0); Hemoglobin 8.1 g/dL (14.0-18.0); Mean Corpuscular HGB CONC 33.1 g/dL (32.0-36.0); Mean Corpuscular Hemoglobin 30.8 pg (27.0-31.0); Mean Platelet Volume 6.2 fL (7.4-10.4); Platelet Count 384 thou/uL (130-400); RBC Distribution Width 13.2 % (11.5-14.5); Red Blood Cell (RBC) Count 2.64 mill/uL (4.70-6.10); White Blood Cell (WBC) Count 8.9 thou/uL (4.8-10.8)
[2021-06-28 04:15] LABS: Anion Gap 12 mmol/L (10-20); BUN (Urea Nitrogen) 10 mg/dL (8.4-25.7); Calc. Creatinine Clearance 106 mL/min (70-130); Calcium 9.5 mg/dL (7.8-10.44); Carbon Dioxide 22 mmol/L (23-31); Chloride 105 mmol/L (98-107); Glucose 164 mg/dL (83-110); Potassium 3.6 mmol/L (3.5-5.1); Sodium 135 mmol/L (136-145)
[2021-06-28] MEDS: Cefepime 2 GM in Sodium Chloride 0.9% 100 ML IVPB SCH ×2 (05:08→16:51)
[2021-06-28] MEDS: Folic Acid 1 MG TAB PO SCH ×2 (10:11→19:58)
[2021-06-28] MEDS: Allopurinol 300 MG TAB PO SCH (10:11)
[2021-06-28] MEDS: Levothyroxine Sodium 112 MCG TAB PO SCH (10:11)
[2021-06-28] MEDS: Ferrous Sulfate 325 MG TAB PO SCH (10:11)
[2021-06-28] MEDS: Levothyroxine Sodium 25 MCG TAB PO SCH (10:11)
[2021-06-28] MEDS: Docusate 100 MG CAP PO SCH (10:11)
[2021-06-28] MEDS: Pramipexole Di-HCl 0.125 MG TAB PO SCH ×2 (10:12→19:59)
[2021-06-28] MEDS: PARoxetine 20 MG TAB PO SCH ×2 (10:12→19:58)
[2021-06-28] MEDS: Oxybutynin ER 5 MG TAB PO SCH (10:12)
[2021-06-28] MEDS: Losartan 25 MG TAB PO SCH (10:12)
[2021-06-28] MEDS: Triple Antibiotic Oint 1 GM Packet TOP SCH (19:57)
[2021-06-28] MEDS: Atorvastatin Calcium 40 MG TAB PO SCH (19:58)
[2021-06-28] MEDS: HYDROcodone/Acetaminophen 10/325 mg Tablet PO PRN (19:58)
[2021-06-28] MEDS: Pramipexole Di-HCl 0.25 MG TAB PO SCH (20:00)
[2021-06-28] MEDS: Lorazepam 2 MG/ML VIAL SLOW IVP PRN (21:28)
[2021-06-29] MEDS: HYDROcodone/Acetaminophen 10/325 mg Tablet PO PRN ×4 (02:20→23:36)
[2021-06-29] MEDS: Cefepime 2 GM in Sodium Chloride 0.9% 100 ML IVPB SCH ×2 (02:21→16:11)
[2021-06-29] MEDS: Oxybutynin ER 5 MG TAB PO SCH (08:46)
[2021-06-29] MEDS: Docusate 100 MG CAP PO SCH (08:46)
[2021-06-29] MEDS: Losartan 25 MG TAB PO SCH (08:46)
[2021-06-29] MEDS: PARoxetine 20 MG TAB PO SCH ×2 (08:47→21:56)
[2021-06-29] MEDS: Allopurinol 300 MG TAB PO SCH (08:47)
[2021-06-29] MEDS: Levothyroxine Sodium 112 MCG TAB PO SCH (08:47)
[2021-06-29] MEDS: Ferrous Sulfate 325 MG TAB PO SCH (08:47)
[2021-06-29] MEDS: Levothyroxine Sodium 25 MCG TAB PO SCH (08:47)
[2021-06-29] MEDS: Folic Acid 1 MG TAB PO SCH ×2 (08:47→21:56)
[2021-06-29] MEDS: HumaLOG 300 UNITS/3 ML VIAL SC PRN (16:44)
[2021-06-29] MEDS: Atorvastatin Calcium 40 MG TAB PO SCH (21:56)
[2021-06-29] MEDS: Acetaminophen 325 MG TAB PO PRN (21:56)
[2021-06-29] MEDS: Pramipexole Di-HCl 0.25 MG TAB PO SCH (21:56)
[2021-06-30] MEDS: Lorazepam 2 MG/ML VIAL SLOW IVP PRN ×2 (01:24→13:00)
[2021-06-30] MEDS: Hyoscyamine Sulfate SL 0.125 mg Tablet PO PRN (01:50)
[2021-06-30] MEDS: Cefepime 2 GM in Sodium Chloride 0.9% 100 ML IVPB SCH (02:48)
[2021-06-30] MEDS: HumaLOG 300 UNITS/3 ML VIAL SC PRN ×3 (06:19→18:01)
[2021-06-30] MEDS: Docusate 100 MG CAP PO SCH (08:49)
[2021-06-30] MEDS: Levothyroxine Sodium 112 MCG TAB PO SCH (08:49)
[2021-06-30] MEDS: Allopurinol 300 MG TAB PO SCH (08:49)
[2021-06-30] MEDS: PARoxetine 20 MG TAB PO SCH ×3 (08:49→22:15)
[2021-06-30] MEDS: Oxybutynin ER 5 MG TAB PO SCH (08:50)
[2021-06-30] MEDS: Folic Acid 1 MG TAB PO SCH ×3 (08:50→22:14)
[2021-06-30] MEDS: Losartan 25 MG TAB PO SCH (08:50)
[2021-06-30] MEDS: Ferrous Sulfate 325 MG TAB PO SCH (08:51)
[2021-06-30] MEDS: Levothyroxine Sodium 25 MCG TAB PO SCH (08:51)
[2021-06-30] MEDS: Pramipexole Di-HCl 0.125 MG TAB PO SCH (09:13)
[2021-06-30] MEDS: HYDROcodone/Acetaminophen 10/325 mg Tablet PO PRN ×2 (09:16→17:50)
[2021-06-30] MEDS: Clindamycin 150 MG CAP PO SCH ×3 (12:53→22:14)
[2021-06-30] MEDS: Atorvastatin Calcium 40 MG TAB PO SCH ×2 (20:10→22:14)
[2021-06-30] MEDS: Acetaminophen 325 MG TAB PO PRN (20:13)
[2021-06-30] MEDS: Triple Antibiotic Oint 1 GM Packet TOP SCH (20:13)
[2021-06-30] MEDS: Pramipexole Di-HCl 0.25 MG TAB PO SCH ×2 (20:13→22:15)
[2021-07-01] MEDS: HYDROcodone/Acetaminophen 10/325 mg Tablet PO PRN ×3 (00:02→17:24)
[2021-07-01] MEDS: Lorazepam 2 MG/ML VIAL SLOW IVP PRN ×2 (01:01→10:55)
[2021-07-01] MEDS: Hyoscyamine Sulfate SL 0.125 mg Tablet PO PRN ×2 (03:12→13:03)
[2021-07-01] MEDS: Clindamycin 150 MG CAP PO SCH ×3 (03:59→21:25)
[2021-07-01] MEDS: HumaLOG 300 UNITS/3 ML VIAL SC PRN ×4 (06:18→21:40)
[2021-07-01] MEDS: Folic Acid 1 MG TAB PO SCH ×2 (07:47→21:25)
[2021-07-01] MEDS: Ferrous Sulfate 325 MG TAB PO SCH (07:47)
[2021-07-01] MEDS: Docusate 100 MG CAP PO SCH (07:47)
[2021-07-01] MEDS: Levothyroxine Sodium 25 MCG TAB PO SCH (07:48)
[2021-07-01] MEDS: Allopurinol 300 MG TAB PO SCH (07:48)
[2021-07-01] MEDS: PARoxetine 20 MG TAB PO SCH ×2 (07:48→21:25)
[2021-07-01] MEDS: Levothyroxine Sodium 112 MCG TAB PO SCH (07:48)
[2021-07-01] MEDS: Losartan 25 MG TAB PO SCH (07:49)
[2021-07-01] MEDS: Oxybutynin ER 5 MG TAB PO SCH (07:53)
[2021-07-01] MEDS: Pramipexole Di-HCl 0.125 MG TAB PO SCH (07:57)
[2021-07-01] MEDS: Atorvastatin Calcium 40 MG TAB PO SCH (21:26)
[2021-07-01] MEDS: Lantus 1000 UNITS/10 ML VIAL SC SCH (21:27)
[2021-07-01] MEDS: Pramipexole Di-HCl 0.25 MG TAB PO SCH (21:30)
[2021-07-02] MEDS: Lorazepam 2 MG/ML VIAL SLOW IVP PRN ×2 (03:42→21:44)
[2021-07-02] MEDS: Clindamycin 150 MG CAP PO SCH ×3 (05:07→20:15)
[2021-07-02] MEDS: HYDROcodone/Acetaminophen 10/325 mg Tablet PO PRN (05:28)
[2021-07-02] MEDS: HumaLOG 300 UNITS/3 ML VIAL SC PRN ×3 (05:33→18:21)
[2021-07-02 06:36] LABS: #Eosinphils 0.3 thou/uL (0.0-0.7); #Lymphocytes 1.3 thou/uL (1.20-3.40); #Monocytes 0.5 thou/uL (0.11-0.59); #Neutrophils 6.7 thou/uL (1.40-6.50); %Basophils 0.3 % (0.0-1.0); %Eosinophils 2.9 % (0.0-10.0); %Lymphocytes 14.4 % (21.0-51.0); %Monocytes 5.5 % (0.0-10.0); %Neutrophils 76.9 % (42.0-75.0); Hemoglobin 8.5 g/dL (14.0-18.0); Mean Corpuscular HGB CONC 32.7 g/dL (32.0-36.0); Mean Corpuscular Hemoglobin 29.7 pg (27.0-31.0); Mean Corpuscular Volume 90.8 fL (78.0-98.0); Mean Platelet Volume 6.3 fL (7.4-10.4); Platelet Count 402 thou/uL (130-400); RBC Distribution Width 13.1 % (11.5-14.5); Red Blood Cell (RBC) Count 2.86 mill/uL (4.70-6.10); White Blood Cell (WBC) Count 8.8 thou/uL (4.8-10.8)
[2021-07-02] MEDS: Oxybutynin ER 5 MG TAB PO SCH (09:00)
[2021-07-02] MEDS ORDERED: Lantus 1000 UNITS/10 ML VIAL SC SCH (09:00)
[2021-07-02] MEDS: Levothyroxine Sodium 112 MCG TAB PO SCH (09:06)
[2021-07-02] MEDS: Allopurinol 300 MG TAB PO SCH (09:07)
[2021-07-02] MEDS: Ferrous Sulfate 325 MG TAB PO SCH (09:07)
[2021-07-02] MEDS: Levothyroxine Sodium 25 MCG TAB PO SCH (09:07)
[2021-07-02] MEDS: Folic Acid 1 MG TAB PO SCH ×2 (09:07→20:15)
[2021-07-02] MEDS: Losartan 25 MG TAB PO SCH (09:07)
[2021-07-02] MEDS: PARoxetine 20 MG TAB PO SCH ×2 (09:07→20:16)
[2021-07-02] MEDS: Docusate 100 MG CAP PO SCH (09:08)
[2021-07-02] MEDS: Docusate Sodium 100 MG/10 ML UDCUP PO SCH (12:54)
[2021-07-02] MEDS: Pramipexole Di-HCl 0.125 MG TAB PO SCH (15:41)
[2021-07-02] MEDS: Atorvastatin Calcium 40 MG TAB PO SCH (20:15)
[2021-07-02] MEDS: Triple Antibiotic Oint 1 GM Packet TOP SCH (20:15)
[2021-07-02] MEDS: Oxybutynin 5 MG TAB PO SCH (20:16)
[2021-07-02] MEDS: Pramipexole Di-HCl 0.25 MG TAB PO SCH (20:16)
[2021-07-02] MEDS: Lantus 1000 UNITS/10 ML VIAL SC SCH ×2 (21:23→21:27)
[2021-07-03] MEDS: Clindamycin 150 MG CAP PO SCH ×3 (04:14→22:00)
[2021-07-03 08:07] LABS: #Eosinphils 0.2 thou/uL (0.0-0.7); #Lymphocytes 1.7 thou/uL (1.20-3.40); #Monocytes 0.5 thou/uL (0.11-0.59); #Neutrophils 8.5 thou/uL (1.40-6.50); %Basophils 0.3 % (0.0-1.0); %Eosinophils 1.5 % (0.0-10.0); %Lymphocytes 15.3 % (21.0-51.0); %Monocytes 4.7 % (0.0-10.0); %Neutrophils 78.2 % (42.0-75.0); Hemoglobin 9.2 g/dL (14.0-18.0); Mean Corpuscular HGB CONC 31.9 g/dL (32.0-36.0); Mean Platelet Volume 6.1 fL (7.4-10.4); Platelet Count 423 thou/uL (130-400); RBC Distribution Width 13.9 % (11.5-14.5); Red Blood Cell (RBC) Count 3.18 mill/uL (4.70-6.10); White Blood Cell (WBC) Count 10.9 thou/uL (4.8-10.8)
[2021-07-03 08:25] LABS: Anion Gap 16 mmol/L (10-20); BUN (Urea Nitrogen) 9 mg/dL (8.4-25.7); Calc. Creatinine Clearance 102 mL/min (70-130); Calcium 9.8 mg/dL (7.8-10.44); Carbon Dioxide 22 mmol/L (23-31); Chloride 106 mmol/L (98-107); Glucose 204 mg/dL (83-110); Potassium 3.7 mmol/L (3.5-5.1); Sodium 140 mmol/L (136-145)
[2021-07-03] MEDS ORDERED: Lantus 1000 UNITS/10 ML VIAL SC SCH (09:00)
[2021-07-03] MEDS: Levothyroxine Sodium 25 MCG TAB PO SCH (09:44)
[2021-07-03] MEDS: Losartan 25 MG TAB PO SCH (09:44)
[2021-07-03] MEDS: Folic Acid 1 MG TAB PO SCH ×2 (09:44→22:00)
[2021-07-03] MEDS: Ferrous Sulfate 325 MG TAB PO SCH (09:44)
[2021-07-03] MEDS: PARoxetine 20 MG TAB PO SCH ×2 (09:45→21:59)
[2021-07-03] MEDS: Levothyroxine Sodium 112 MCG TAB PO SCH (09:46)
[2021-07-03] MEDS: Oxybutynin 5 MG TAB PO SCH ×2 (09:46→21:59)
[2021-07-03] MEDS: Docusate Sodium 100 MG/10 ML UDCUP PO SCH (09:46)
[2021-07-03] MEDS: Pramipexole Di-HCl 0.125 MG TAB PO SCH ×2 (09:47→11:05)
[2021-07-03] MEDS: Allopurinol 300 MG TAB PO SCH (09:48)
[2021-07-03] MEDS: HumaLOG 300 UNITS/3 ML VIAL SC PRN ×2 (18:21→22:00)
[2021-07-03] MEDS: Atorvastatin Calcium 40 MG TAB PO SCH (21:59)
[2021-07-03] MEDS: Lorazepam 2 MG/ML VIAL SLOW IVP PRN (22:01)
[2021-07-03] MEDS: Lantus 1000 UNITS/10 ML VIAL SC SCH (22:38)
[2021-07-03] MEDS: Pramipexole Di-HCl 0.25 MG TAB PO SCH (22:39)
[2021-07-04] MEDS: HYDROcodone/Acetaminophen 10/325 mg Tablet PO PRN ×2 (01:17→20:31)
[2021-07-04] MEDS: Clindamycin 150 MG CAP PO SCH ×3 (05:11→20:30)
[2021-07-04] MEDS: PARoxetine 20 MG TAB PO SCH ×2 (08:18→20:29)
[2021-07-04] MEDS: Pramipexole Di-HCl 0.125 MG TAB PO SCH (08:18)
[2021-07-04] MEDS: Folic Acid 1 MG TAB PO SCH ×2 (08:18→20:30)
[2021-07-04] MEDS: Levothyroxine Sodium 112 MCG TAB PO SCH (08:19)
[2021-07-04] MEDS: Levothyroxine Sodium 25 MCG TAB PO SCH (08:19)
[2021-07-04] MEDS: Ferrous Sulfate 325 MG TAB PO SCH (08:20)
[2021-07-04] MEDS: Oxybutynin 5 MG TAB PO SCH ×2 (08:20→20:29)
[2021-07-04] MEDS: Docusate Sodium 100 MG/10 ML UDCUP PO SCH (08:20)
[2021-07-04] MEDS: Losartan 25 MG TAB PO SCH (08:20)
[2021-07-04] MEDS: Allopurinol 300 MG TAB PO SCH (08:20)
[2021-07-04] MEDS: Amlodipine 5 MG TAB PO SCH (08:25)
[2021-07-04] MEDS: Lantus 1000 UNITS/10 ML VIAL SC SCH ×2 (08:32→20:27)
[2021-07-04] MEDS: HumaLOG 300 UNITS/3 ML VIAL SC PRN ×2 (12:31→17:08)
[2021-07-04] MEDS: Pramipexole Di-HCl 0.25 MG TAB PO SCH (20:29)
[2021-07-04] MEDS: Atorvastatin Calcium 40 MG TAB PO SCH (20:30)
[2021-07-04] MEDS: Triple Antibiotic Oint 1 GM Packet TOP SCH (20:30)
[2021-07-04] MEDS ORDERED: metFORMIN XR 500 MG TAB PO SCH (21:00)
[2021-07-04] MEDS: Haloperidol Lactate 5 MG/ML VIAL SLOW IVP PRN (21:45)
[2021-07-04] MEDS: metFORMIN XR 500 MG TAB PO SCH ×2 (22:15→22:17)
[2021-07-05] MEDS: Clindamycin 150 MG CAP PO SCH ×3 (05:24→20:59)
[2021-07-05] MEDS: Docusate Sodium 100 MG/10 ML UDCUP PO SCH (08:30)
[2021-07-05] MEDS: PARoxetine 20 MG TAB PO SCH ×2 (08:31→21:00)
[2021-07-05] MEDS: Levothyroxine Sodium 112 MCG TAB PO SCH (08:31)
[2021-07-05] MEDS: Pramipexole Di-HCl 0.125 MG TAB PO SCH (08:31)
[2021-07-05] MEDS: Ferrous Sulfate 325 MG TAB PO SCH (08:32)
[2021-07-05] MEDS: Losartan 25 MG TAB PO SCH (08:32)
[2021-07-05] MEDS: Levothyroxine Sodium 25 MCG TAB PO SCH (08:32)
[2021-07-05] MEDS: Oxybutynin 5 MG TAB PO SCH ×2 (08:32→21:02)
[2021-07-05] MEDS: Amlodipine 5 MG TAB PO SCH (08:32)
[2021-07-05] MEDS: Allopurinol 300 MG TAB PO SCH (08:33)
[2021-07-05] MEDS: Folic Acid 1 MG TAB PO SCH ×2 (08:34→21:02)
[2021-07-05] MEDS: Lantus 1000 UNITS/10 ML VIAL SC SCH ×2 (08:37→21:02)
[2021-07-05] MEDS: HumaLOG 300 UNITS/3 ML VIAL SC PRN ×2 (12:42→17:46)
[2021-07-05] MEDS: HYDROcodone/Acetaminophen 10/325 mg Tablet PO PRN ×2 (15:34→21:01)
[2021-07-05] MEDS: Atorvastatin Calcium 40 MG TAB PO SCH (21:01)
[2021-07-05] MEDS: Pramipexole Di-HCl 0.25 MG TAB PO SCH (21:04)
[2021-07-05] MEDS: metFORMIN XR 500 MG TAB PO SCH (21:04)
[2021-07-05] MEDS: Haloperidol Lactate 5 MG/ML VIAL SLOW IVP PRN (22:46)
[2021-07-05] MEDS: Acetaminophen 325 MG TAB PO PRN (22:46)
[2021-07-06] MEDS: Clindamycin 150 MG CAP PO SCH ×3 (04:43→20:59)
[2021-07-06] MEDS: HYDROcodone/Acetaminophen 10/325 mg Tablet PO PRN ×2 (04:44→10:57)
[2021-07-06] MEDS: Lantus 1000 UNITS/10 ML VIAL SC SCH ×2 (08:14→21:06)
[2021-07-06] MEDS: Levothyroxine Sodium 25 MCG TAB PO SCH (08:14)
[2021-07-06] MEDS: Docusate Sodium 100 MG/10 ML UDCUP PO SCH (08:14)
[2021-07-06] MEDS: Pramipexole Di-HCl 0.125 MG TAB PO SCH (08:14)
[2021-07-06] MEDS: Losartan 25 MG TAB PO SCH (08:14)
[2021-07-06] MEDS: Amlodipine 5 MG TAB PO SCH (08:14)
[2021-07-06] MEDS: Oxybutynin 5 MG TAB PO SCH ×2 (08:14→21:00)
[2021-07-06] MEDS: Folic Acid 1 MG TAB PO SCH ×2 (08:15→21:00)
[2021-07-06] MEDS: Allopurinol 300 MG TAB PO SCH (08:15)
[2021-07-06] MEDS: Ferrous Sulfate 325 MG TAB PO SCH (08:15)
[2021-07-06] MEDS: Levothyroxine Sodium 112 MCG TAB PO SCH (08:15)
[2021-07-06] MEDS: PARoxetine 20 MG TAB PO SCH ×2 (08:15→21:02)
[2021-07-06] MEDS ORDERED: Amino Acids 4.25 %/Dextrose 5% 2,000 ML BAG IV SCH (14:45)
[2021-07-06] MEDS: Amino Acids 4.25 %/Dextrose 5% 1,000 ML IV SCH (15:44)
[2021-07-06] MEDS: Lorazepam 2 MG/ML VIAL SLOW IVP PRN (15:44)
[2021-07-06] MEDS: Atorvastatin Calcium 40 MG TAB PO SCH (20:59)
[2021-07-06] MEDS: Pramipexole Di-HCl 0.25 MG TAB PO SCH (21:05)
[2021-07-06] MEDS: Triple Antibiotic Oint 1 GM Packet TOP SCH (22:28)
[2021-07-07] MEDS: Temazepam 15 MG CAP PO PRN ×2 (01:07→22:33)
[2021-07-07] MEDS: Haloperidol Lactate 5 MG/ML VIAL SLOW IVP PRN (01:08)
[2021-07-07] MEDS: Amino Acids 4.25 %/Dextrose 5% 1,000 ML IV SCH ×3 (02:01→21:25)
[2021-07-07] MEDS: HYDROcodone/Acetaminophen 10/325 mg Tablet PO PRN ×4 (03:54→22:33)
[2021-07-07] MEDS: Clindamycin 150 MG CAP PO SCH ×3 (04:17→20:05)
[2021-07-07] MEDS: HumaLOG 300 UNITS/3 ML VIAL SC PRN ×3 (04:24→16:08)
[2021-07-07 05:54] LABS: #Eosinphils 0.4 thou/uL (0.0-0.7); #Lymphocytes 1.2 thou/uL (1.20-3.40); #Monocytes 0.4 thou/uL (0.11-0.59); #Neutrophils 6.4 thou/uL (1.40-6.50); %Basophils 0.2 % (0.0-1.0); %Lymphocytes 13.8 % (21.0-51.0); %Neutrophils 75.9 % (42.0-75.0); Hemoglobin 9.1 g/dL (14.0-18.0); Mean Corpuscular HGB CONC 32.2 g/dL (32.0-36.0); Mean Corpuscular Hemoglobin 30.2 pg (27.0-31.0); Mean Corpuscular Volume 93.8 fL (78.0-98.0); Mean Platelet Volume 6.5 fL (7.4-10.4); Platelet Count 296 thou/uL (130-400); White Blood Cell (WBC) Count 8.5 thou/uL (4.8-10.8)
[2021-07-07 06:23] LABS: Anion Gap 14 mmol/L (10-20); BUN (Urea Nitrogen) 15 mg/dL (8.4-25.7); Calc. Creatinine Clearance 101 mL/min (70-130); Calcium 9.2 mg/dL (7.8-10.44); Carbon Dioxide 24 mmol/L (23-31); Chloride 102 mmol/L (98-107); Glucose 271 mg/dL (83-110); Potassium 3.8 mmol/L (3.5-5.1); Sodium 136 mmol/L (136-145)
[2021-07-07] MEDS: Losartan 25 MG TAB PO SCH (08:06)
[2021-07-07] MEDS: Amlodipine 5 MG TAB PO SCH (08:07)
[2021-07-07] MEDS: Levothyroxine Sodium 25 MCG TAB PO SCH (08:07)
[2021-07-07] MEDS: Ferrous Sulfate 325 MG TAB PO SCH (08:08)
[2021-07-07] MEDS: Levothyroxine Sodium 112 MCG TAB PO SCH (08:08)
[2021-07-07] MEDS: Lantus 1000 UNITS/10 ML VIAL SC SCH ×2 (08:08→20:23)
[2021-07-07] MEDS: Allopurinol 300 MG TAB PO SCH (08:08)
[2021-07-07] MEDS: Folic Acid 1 MG TAB PO SCH ×2 (08:08→20:05)
[2021-07-07] MEDS: Oxybutynin 5 MG TAB PO SCH ×2 (08:08→20:05)
[2021-07-07] MEDS: Docusate Sodium 100 MG/10 ML UDCUP PO SCH (08:08)
[2021-07-07] MEDS: PARoxetine 20 MG TAB PO SCH ×2 (08:08→20:05)
[2021-07-07] MEDS: Pramipexole Di-HCl 0.125 MG TAB PO SCH (08:13)
[2021-07-07] MEDS: metFORMIN XR 500 MG TAB PO SCH (20:03)
[2021-07-07] MEDS: Atorvastatin Calcium 40 MG TAB PO SCH (20:05)
[2021-07-07] MEDS: Pramipexole Di-HCl 0.25 MG TAB PO SCH (20:28)
[2021-07-08] MEDS: HYDROcodone/Acetaminophen 10/325 mg Tablet PO PRN ×4 (03:34→21:34)
[2021-07-08] MEDS: Clindamycin 150 MG CAP PO SCH ×3 (05:20→20:05)
[2021-07-08] MEDS: HumaLOG 300 UNITS/3 ML VIAL SC PRN ×3 (05:27→17:24)
[2021-07-08] MEDS ORDERED: Lantus 1000 UNITS/10 ML VIAL SC SCH (07:30)
[2021-07-08] MEDS: Amino Acids 4.25 %/Dextrose 5% 1,000 ML IV SCH ×2 (07:51→17:35)
[2021-07-08] MEDS: Allopurinol 300 MG TAB PO SCH (07:52)
[2021-07-08] MEDS: Levothyroxine Sodium 112 MCG TAB PO SCH (07:52)
[2021-07-08] MEDS: Folic Acid 1 MG TAB PO SCH ×2 (07:52→20:05)
[2021-07-08] MEDS: Pramipexole Di-HCl 0.125 MG TAB PO SCH (07:52)
[2021-07-08] MEDS: Oxybutynin 5 MG TAB PO SCH ×2 (07:52→20:04)
[2021-07-08] MEDS: Levothyroxine Sodium 25 MCG TAB PO SCH (07:52)
[2021-07-08] MEDS: PARoxetine 20 MG TAB PO SCH ×2 (07:52→20:04)
[2021-07-08] MEDS: Docusate Sodium 100 MG/10 ML UDCUP PO SCH (07:53)
[2021-07-08] MEDS: Ferrous Sulfate 325 MG TAB PO SCH (07:53)
[2021-07-08] MEDS: Losartan 25 MG TAB PO SCH (07:53)
[2021-07-08] MEDS: Amlodipine 5 MG TAB PO SCH (07:53)
[2021-07-08] MEDS: Triple Antibiotic Oint 1 GM Packet TOP SCH (20:04)
[2021-07-08] MEDS: Atorvastatin Calcium 40 MG TAB PO SCH (20:05)
[2021-07-08] MEDS: metFORMIN XR 500 MG TAB PO SCH (20:05)
[2021-07-08] MEDS: Pramipexole Di-HCl 0.25 MG TAB PO SCH (20:06)
[2021-07-08] MEDS: Lantus 1000 UNITS/10 ML VIAL SC SCH (20:11)
[2021-07-08] MEDS: Temazepam 15 MG CAP PO PRN (21:35)
[2021-07-09] MEDS: HYDROcodone/Acetaminophen 10/325 mg Tablet PO PRN ×3 (02:36→23:33)
[2021-07-09] MEDS: Clindamycin 150 MG CAP PO SCH ×3 (04:31→20:17)
[2021-07-09] MEDS: HumaLOG 300 UNITS/3 ML VIAL SC PRN ×2 (04:33→16:20)
[2021-07-09] MEDS: PARoxetine 20 MG TAB PO SCH ×2 (08:15→20:18)
[2021-07-09] MEDS: Folic Acid 1 MG TAB PO SCH ×2 (08:15→20:19)
[2021-07-09] MEDS: Oxybutynin 5 MG TAB PO SCH ×2 (08:15→20:20)
[2021-07-09] MEDS: Losartan 25 MG TAB PO SCH (08:15)
[2021-07-09] MEDS: Levothyroxine Sodium 112 MCG TAB PO SCH (08:16)
[2021-07-09] MEDS: Lantus 1000 UNITS/10 ML VIAL SC SCH ×2 (08:16→20:16)
[2021-07-09] MEDS: Levothyroxine Sodium 25 MCG TAB PO SCH (08:16)
[2021-07-09] MEDS: Ferrous Sulfate 325 MG TAB PO SCH (08:16)
[2021-07-09] MEDS ORDERED: Lorazepam 2 MG/ML VIAL SLOW IVP PRN (08:16)
[2021-07-09] MEDS: Allopurinol 300 MG TAB PO SCH (08:16)
[2021-07-09] MEDS: Docusate Sodium 100 MG/10 ML UDCUP PO SCH (08:17)
[2021-07-09] MEDS: Amlodipine 5 MG TAB PO SCH (08:17)
[2021-07-09] MEDS: Pramipexole Di-HCl 0.125 MG TAB PO SCH (08:17)
[2021-07-09] MEDS: Atorvastatin Calcium 40 MG TAB PO SCH (20:18)
[2021-07-09] MEDS: Pramipexole Di-HCl 0.25 MG TAB PO SCH (23:00)
[2021-07-09] MEDS: metFORMIN XR 500 MG TAB PO SCH (23:00)
[2021-07-09] MEDS: Temazepam 15 MG CAP PO PRN (23:33)
[2021-07-10] MEDS: Haloperidol Lactate 5 MG/ML VIAL SLOW IVP PRN ×2 (00:48→23:47)
[2021-07-10] MEDS: Clindamycin 150 MG CAP PO SCH ×3 (05:23→20:22)
[2021-07-10] MEDS: Losartan 25 MG TAB PO SCH (08:27)
[2021-07-10] MEDS: Levothyroxine Sodium 25 MCG TAB PO SCH (08:28)
[2021-07-10] MEDS: Ferrous Sulfate 325 MG TAB PO SCH (08:28)
[2021-07-10] MEDS: PARoxetine 20 MG TAB PO SCH ×2 (08:29→20:23)
[2021-07-10] MEDS: Amlodipine 5 MG TAB PO SCH (08:30)
[2021-07-10] MEDS: Allopurinol 300 MG TAB PO SCH (08:30)
[2021-07-10] MEDS: Folic Acid 1 MG TAB PO SCH ×2 (08:30→20:24)
[2021-07-10] MEDS: Oxybutynin 5 MG TAB PO SCH ×2 (08:33→20:24)
[2021-07-10] MEDS: Docusate Sodium 100 MG/10 ML UDCUP PO SCH (08:33)
[2021-07-10] MEDS: Levothyroxine Sodium 112 MCG TAB PO SCH (08:33)
[2021-07-10] MEDS: Lantus 1000 UNITS/10 ML VIAL SC SCH ×2 (08:35→20:25)
[2021-07-10] MEDS: Pramipexole Di-HCl 0.125 MG TAB PO SCH (11:40)
[2021-07-10] MEDS: HumaLOG 300 UNITS/3 ML VIAL SC PRN ×2 (12:33→20:29)
[2021-07-10] MEDS: metFORMIN XR 500 MG TAB PO SCH (20:23)
[2021-07-10] MEDS: Atorvastatin Calcium 40 MG TAB PO SCH (20:24)
[2021-07-10] MEDS: Triple Antibiotic Oint 1 GM Packet TOP SCH (20:24)
[2021-07-10] MEDS: HYDROcodone/Acetaminophen 10/325 mg Tablet PO PRN (20:24)
[2021-07-10] MEDS: Pramipexole Di-HCl 0.25 MG TAB PO SCH (20:25)
[2021-07-10] MEDS: Temazepam 15 MG CAP PO PRN (20:25)
[2021-07-10] MEDS ORDERED: Haloperidol Lactate 5 MG/ML VIAL IM PRN (23:47)
[2021-07-11] MEDS: HYDROcodone/Acetaminophen 10/325 mg Tablet PO PRN ×3 (02:27→20:51)
[2021-07-11] MEDS: Levothyroxine Sodium 25 MCG TAB PO SCH (08:11)
[2021-07-11] MEDS: Losartan 25 MG TAB PO SCH (08:11)
[2021-07-11] MEDS: Amlodipine 5 MG TAB PO SCH (08:11)
[2021-07-11] MEDS: PARoxetine 20 MG TAB PO SCH ×2 (08:11→20:50)
[2021-07-11] MEDS: Levothyroxine Sodium 112 MCG TAB PO SCH (08:11)
[2021-07-11] MEDS: Docusate Sodium 100 MG/10 ML UDCUP PO SCH (08:11)
[2021-07-11] MEDS: Pramipexole Di-HCl 0.125 MG TAB PO SCH (08:11)
[2021-07-11] MEDS: Allopurinol 300 MG TAB PO SCH (08:11)
[2021-07-11] MEDS: Ferrous Sulfate 325 MG TAB PO SCH (08:12)
[2021-07-11] MEDS: Oxybutynin 5 MG TAB PO SCH ×2 (08:12→20:52)
[2021-07-11] MEDS: Folic Acid 1 MG TAB PO SCH ×2 (08:13→20:51)
[2021-07-11] MEDS: Lantus 1000 UNITS/10 ML VIAL SC SCH ×2 (08:13→20:54)
[2021-07-11] MEDS: HumaLOG 300 UNITS/3 ML VIAL SC PRN (11:32)
[2021-07-11 16:43] VITALS: BMI 24.6
[2021-07-11] MEDS: Atorvastatin Calcium 40 MG TAB PO SCH (20:49)
[2021-07-11] MEDS: metFORMIN XR 500 MG TAB PO SCH (20:49)
[2021-07-11] MEDS: Pramipexole Di-HCl 0.25 MG TAB PO SCH (20:49)
[2021-07-11] MEDS: Temazepam 15 MG CAP PO PRN (20:51)
[2021-07-12] MEDS: HumaLOG 300 UNITS/3 ML VIAL SC PRN (05:06)
[2021-07-12 07:59] VITALS: BP 93/60; TEMP 97.7
[2021-07-12] MEDS: Amlodipine 5 MG TAB PO SCH (08:35)
[2021-07-12] MEDS: PARoxetine 20 MG TAB PO SCH (08:35)
[2021-07-12] MEDS: Allopurinol 300 MG TAB PO SCH (08:36)
[2021-07-12] MEDS: Losartan 25 MG TAB PO SCH (08:36)
[2021-07-12] MEDS: Folic Acid 1 MG TAB PO SCH (08:36)
[2021-07-12] MEDS: Oxybutynin 5 MG TAB PO SCH (08:36)
[2021-07-12] MEDS: Levothyroxine Sodium 25 MCG TAB PO SCH (08:36)
[2021-07-12] MEDS: Levothyroxine Sodium 112 MCG TAB PO SCH (08:37)
[2021-07-12] MEDS: Ferrous Sulfate 325 MG TAB PO SCH (08:37)
[2021-07-12] MEDS: Docusate Sodium 100 MG/10 ML UDCUP PO SCH (08:37)
[2021-07-12] MEDS: Lantus 1000 UNITS/10 ML VIAL SC SCH (08:37)
[2021-07-12] MEDS: Pramipexole Di-HCl 0.125 MG TAB PO SCH (13:26)
== END 2021-07-12 14:48 | disposition home or self-care (01) | DRG 693 ==
LOC: T4-A 05:21 → OBSVTOIN 08:11 → CCU 06-23 12:11 → IMCU/EMU 06-25 12:02 → T4-B 06-29 19:17
PROVIDERS: ADMIT Student in an Organized Health Care Education/Training Program; ATTEND Hospitalist
PROC: 0T2BX0Z Change Drainage Device in Bladder, External Approach (ICD-10-PCS; principal; 2021-06-22)
PROC: 30233N1 Transfusion of Nonautologous Red Blood Cells into Peripheral Vein, Percutaneous Approach (ICD-10-PCS; 2021-06-24)
DX: N21.0 Calculus in bladder (principal); G93.41 Metabolic encephalopathy; E87.1 Hypo-osmolality and hyponatremia; E87.2 Acidosis; D62 Acute posthemorrhagic anemia; N31.9 Neuromuscular dysfunction of bladder, unspecified; E03.9 Hypothyroidism, unspecified; R31.0 Gross hematuria; F41.9 Anxiety disorder, unspecified; F32.A Depression, unspecified; M10.9 Gout, unspecified; N32.89 Other specified disorders of bladder; E87.5 Hyperkalemia; R13.12 Dysphagia, oropharyngeal phase; Z96.649 Presence of unspecified artificial hip joint; E11.65 Type 2 diabetes mellitus with hyperglycemia; E78.5 Hyperlipidemia, unspecified; I25.10 Atherosclerotic heart disease of native coronary artery without angina pectoris; E11.649 Type 2 diabetes mellitus with hypoglycemia without coma; Z95.5 Presence of coronary angioplasty implant and graft; Z88.0 Allergy status to penicillin; Z79.02 Long term (current) use of antithrombotics/antiplatelets; Z79.4 Long term (current) use of insulin; Z79.82 Long term (current) use of aspirin; Z79.899 Other long term (current) drug therapy; Z98.890 Other specified postprocedural states; Z79.84 Long term (current) use of oral hypoglycemic drugs
CPT/HCPCS: 36415; 36416; 36430; 70450; 74230; 80048; 80053; 81001; 83605; 83735; 84100; 85014; 85018; 85025; 85027; 85049; 86850; 86900; 86901; 87040; 87086; 93005; 93010; 96374; 96376; G0378; J0610; J0692; J1630; J1815; J2060; J2270; J3010; J3486; J3490; J7050; P9016

== ENCOUNTER 2021-07-17 12:45 | Inpatient (IN) | payer MEDICARE ==
[2021-07-17] MEDS ORDERED: Ondansetron ODT 4 MG TAB PO PRN (14:59)
[2021-07-17] MEDS ORDERED: Acetaminophen 325 MG TAB PO PRN (14:59)
[2021-07-17] MEDS ORDERED: Calcium Carbonate 500 MG ChewTAB PO PRN (14:59)
[2021-07-17] MEDS ORDERED: Dextrose 50% Abboject 50 ML SYRINGE SLOW IVP PRN (15:01)
[2021-07-17] MEDS ORDERED: Dextrose 5% in Water 1,000 ML IV PRN (15:01)
[2021-07-17] MEDS ORDERED: HYDROcodone/Acetaminophen 5/325 mg Tablet PO PRN (15:03)
[2021-07-17] MEDS ORDERED: Vancomycin 1 GM in Premix Bag 1 BAG IVPB SCH (15:15)
[2021-07-17] MEDS ORDERED: Ketorolac Tromethamine 30 MG/ML VIAL IVP SCH (15:15)
[2021-07-17 15:16] VITALS: BMI 20.2
[2021-07-17] MEDS ORDERED: oxyCODONE ER 10 MG TAB PO PRN (15:16)
[2021-07-17 15:28] LABS: #Basophils 0.1 thou/uL (0.0-0.2); #Eosinphils 0.1 thou/uL (0.0-0.7); #Lymphocytes 1.4 thou/uL (1.20-3.40); #Monocytes 0.8 thou/uL (0.11-0.59); #Neutrophils 6.1 thou/uL (1.40-6.50); %Basophils 0.6 % (0.0-1.0); %Eosinophils 1.7 % (0.0-10.0); %Lymphocytes 16.6 % (21.0-51.0); %Monocytes 8.9 % (0.0-10.0); %Neutrophils 72.2 % (42.0-75.0); Hemoglobin 10.5 g/dL (14.0-18.0); Mean Corpuscular HGB CONC 32.6 g/dL (32.0-36.0); Mean Corpuscular Hemoglobin 30.1 pg (27.0-31.0); Mean Corpuscular Volume 92.2 fL (78.0-98.0); Mean Platelet Volume 7.2 fL (7.4-10.4); Platelet Count 331 thou/uL (130-400); RBC Distribution Width 13.9 % (11.5-14.5); White Blood Cell (WBC) Count 8.4 thou/uL (4.8-10.8)
[2021-07-17] MEDS ORDERED: Magnesium 2 GM/50 ML 2 GM in Premix Bag 1 BAG IVPB SCH (15:30)
[2021-07-17] MEDS ORDERED: Cefepime 1 GM in Sodium Chloride 0.9% 100 ML IVPB SCH (16:00)
[2021-07-17 16:04] LABS: Troponin I 0.072 ng/mL (< 0.028)
[2021-07-17 16:24] LABS: ALT (SGPT) 12 U/L (8-55); AST (SGOT) 13 U/L (5-34); Albumin 3.4 g/dL (3.4-4.8); Alkaline Phosphatase 105 U/L (40-110); Anion Gap 12 mmol/L (10-20); BUN (Urea Nitrogen) 10 mg/dL (8.4-25.7); Bilirubin, Total 0.6 mg/dL (0.2-1.2); Calc. Creatinine Clearance 91 mL/min (70-130); Calcium 9.9 mg/dL (7.8-10.44); Carbon Dioxide 25 mmol/L (23-31); Chloride 103 mmol/L (98-107); Globulin 3.4 g/dL (2.4-3.5); Glucose 245 mg/dL (83-110); Magnesium 2.1 mg/dL (1.6-2.6); Protein, Total 6.8 g/dL (5.8-8.1); Sodium 136 mmol/L (136-145)
[2021-07-17] MEDS ORDERED: Lorazepam 2 MG/ML VIAL SLOW IVP SCH (17:00)
[2021-07-17] MEDS: Acetaminophen 500 MG TAB PO SCH ×2 (17:14→22:04)
[2021-07-17] MEDS ORDERED: Sodium Chloride 0.9% 1,000 ML IV SCH (17:15)
[2021-07-17] MEDS: VANCOMYCIN 1.25 GM/250 ML BAG 1.25 GM in Premix Bag 1 BAG IVPB SCH (17:48)
[2021-07-17] MEDS: HumaLOG 300 UNITS/3 ML VIAL SC PRN ×2 (17:50→22:21)
[2021-07-17] MEDS: Cefepime 1 GM in Sodium Chloride 0.9% 100 ML IVPB SCH (19:27)
[2021-07-17] MEDS: Famotidine 20 MG TAB PO SCH (22:01)
[2021-07-18 04:14] LABS: #Basophils 0.1 thou/uL (0.0-0.2); #Eosinphils 0.3 thou/uL (0.0-0.7); #Lymphocytes 1.3 thou/uL (1.20-3.40); #Monocytes 0.6 thou/uL (0.11-0.59); #Neutrophils 5.5 thou/uL (1.40-6.50); %Basophils 0.8 % (0.0-1.0); %Eosinophils 3.9 % (0.0-10.0); %Neutrophils 70.3 % (42.0-75.0); Hemoglobin 9.2 g/dL (14.0-18.0); Mean Corpuscular HGB CONC 31.6 g/dL (32.0-36.0); Mean Corpuscular Hemoglobin 29.1 pg (27.0-31.0); Mean Platelet Volume 7.1 fL (7.4-10.4); Platelet Count 328 thou/uL (130-400); Red Blood Cell (RBC) Count 3.15 mill/uL (4.70-6.10); White Blood Cell (WBC) Count 7.8 thou/uL (4.8-10.8)
[2021-07-18 04:31] LABS: Anion Gap 10 mmol/L (10-20); BUN (Urea Nitrogen) 10 mg/dL (8.4-25.7); CRP (Inflammatory) 4.54 mg/dL (= or < 0.5); Calc. Creatinine Clearance 101 mL/min (70-130); Calcium 8.9 mg/dL (7.8-10.44); Carbon Dioxide 23 mmol/L (23-31); Chloride 106 mmol/L (98-107); Glucose 192 mg/dL (83-110); Magnesium 2.2 mg/dL (1.6-2.6); Potassium 3.9 mmol/L (3.5-5.1); Sodium 135 mmol/L (136-145)
[2021-07-18] MEDS: Cefepime 1 GM in Sodium Chloride 0.9% 100 ML IVPB SCH ×2 (05:31→17:17)
[2021-07-18] MEDS: VANCOMYCIN 1.25 GM/250 ML BAG 1.25 GM in Premix Bag 1 BAG IVPB SCH (06:39)
[2021-07-18] MEDS: HumaLOG 300 UNITS/3 ML VIAL SC PRN ×3 (07:29→21:07)
[2021-07-18] MEDS ORDERED: FLU VACC QS2021-22(65YR UP)/PF 240 MCG/0.7 ML SYRINGE IM ONE (09:00)
[2021-07-18] MEDS: Acetaminophen 500 MG TAB PO SCH ×3 (09:18→23:09)
[2021-07-18] MEDS: Famotidine 20 MG TAB PO SCH ×2 (09:19→19:51)
[2021-07-18 11:44] LABS: SARS-CoV-2 PCR by NAA Not Detected (NotDetected)
[2021-07-18] MEDS ORDERED: Saccharomyces boulardii 250 MG CAP PO SCH (12:00)
[2021-07-18] MEDS: HYDROcodone/Acetaminophen 10/325 mg Tablet PO PRN (17:09)
[2021-07-18] MEDS: Bisacodyl 5 MG TAB PO PRN (17:10)
[2021-07-18] MEDS: Atorvastatin Calcium 40 MG TAB PO SCH (19:52)
[2021-07-18] MEDS: PARoxetine 20 MG TAB PO SCH (19:53)
[2021-07-18] MEDS: Folic Acid 1 MG TAB PO SCH (19:53)
[2021-07-18] MEDS: busPIRone HCl 5 MG TAB PO SCH (19:54)
[2021-07-18] MEDS: Lantus 1000 UNITS/10 ML VIAL SC SCH (21:08)
[2021-07-19] MEDS: HYDROcodone/Acetaminophen 10/325 mg Tablet PO PRN ×3 (00:45→17:20)
[2021-07-19 05:06] LABS: #Basophils 0.1 thou/uL (0.0-0.2); #Eosinphils 0.4 thou/uL (0.0-0.7); #Lymphocytes 1.4 thou/uL (1.20-3.40); #Monocytes 0.5 thou/uL (0.11-0.59); #Neutrophils 4.6 thou/uL (1.40-6.50); %Basophils 0.8 % (0.0-1.0); %Eosinophils 5.6 % (0.0-10.0); %Lymphocytes 20.3 % (21.0-51.0); %Neutrophils 66.3 % (42.0-75.0); Hemoglobin 9.3 g/dL (14.0-18.0); Mean Corpuscular HGB CONC 32.9 g/dL (32.0-36.0); Mean Corpuscular Hemoglobin 30.7 pg (27.0-31.0); Mean Corpuscular Volume 93.2 fL (78.0-98.0); Mean Platelet Volume 7.3 fL (7.4-10.4); Platelet Count 313 thou/uL (130-400); RBC Distribution Width 13.9 % (11.5-14.5); Red Blood Cell (RBC) Count 3.03 mill/uL (4.70-6.10); White Blood Cell (WBC) Count 6.9 thou/uL (4.8-10.8)
[2021-07-19 05:19] LABS: Anion Gap 10 mmol/L (10-20); BUN (Urea Nitrogen) 9 mg/dL (8.4-25.7); Calc. Creatinine Clearance 101 mL/min (70-130); Calcium 9.1 mg/dL (7.8-10.44); Carbon Dioxide 22 mmol/L (23-31); Chloride 109 mmol/L (98-107); Glucose 195 mg/dL (83-110); Potassium 3.9 mmol/L (3.5-5.1); Sodium 137 mmol/L (136-145)
[2021-07-19] MEDS: Cefepime 1 GM in Sodium Chloride 0.9% 100 ML IVPB SCH ×2 (05:41→17:17)
[2021-07-19] MEDS: Levothyroxine Sodium 112 MCG TAB PO SCH (05:41)
[2021-07-19] MEDS: HumaLOG 300 UNITS/3 ML VIAL SC PRN ×2 (06:22→13:19)
[2021-07-19] MEDS: Acetaminophen 500 MG TAB PO SCH ×2 (07:57→16:32)
[2021-07-19] MEDS: Losartan 25 MG TAB PO SCH (07:58)
[2021-07-19] MEDS: Famotidine 20 MG TAB PO SCH ×2 (07:59→20:51)
[2021-07-19] MEDS: busPIRone HCl 5 MG TAB PO SCH ×2 (07:59→20:51)
[2021-07-19] MEDS: Allopurinol 300 MG TAB PO SCH (07:59)
[2021-07-19] MEDS: PARoxetine 20 MG TAB PO SCH ×2 (07:59→20:50)
[2021-07-19] MEDS: Folic Acid 1 MG TAB PO SCH ×2 (08:00→20:51)
[2021-07-19] MEDS: Saccharomyces boulardii 250 MG CAP PO SCH (08:00)
[2021-07-19] MEDS: Lantus 1000 UNITS/10 ML VIAL SC SCH ×2 (08:00→20:57)
[2021-07-19] MEDS: Aspirin 325 mg Enteric Coated Tablet PO SCH (16:32)
[2021-07-19] MEDS: Senokot S 8.6-50 MG TAB PO PRN (17:22)
[2021-07-19] MEDS: Atorvastatin Calcium 40 MG TAB PO SCH (20:50)
[2021-07-20] MEDS: Acetaminophen 500 MG TAB PO SCH ×4 (00:17→23:55)
[2021-07-20] MEDS: HYDROcodone/Acetaminophen 10/325 mg Tablet PO PRN ×3 (04:51→20:54)
[2021-07-20] MEDS: Cefepime 1 GM in Sodium Chloride 0.9% 100 ML IVPB SCH ×2 (04:52→17:12)
[2021-07-20] MEDS: Levothyroxine Sodium 112 MCG TAB PO SCH (04:52)
[2021-07-20 05:20] LABS: #Eosinphils 0.2 thou/uL (0.0-0.7); #Lymphocytes 1.3 thou/uL (1.20-3.40); #Monocytes 0.5 thou/uL (0.11-0.59); #Neutrophils 5.5 thou/uL (1.40-6.50); %Basophils 0.5 % (0.0-1.0); %Eosinophils 3.2 % (0.0-10.0); %Lymphocytes 17.2 % (21.0-51.0); %Monocytes 6.5 % (0.0-10.0); %Neutrophils 72.7 % (42.0-75.0); Hemoglobin 10.5 g/dL (14.0-18.0); Mean Corpuscular Hemoglobin 29.2 pg (27.0-31.0); Mean Corpuscular Volume 91.4 fL (78.0-98.0); Mean Platelet Volume 7.1 fL (7.4-10.4); Platelet Count 342 thou/uL (130-400); RBC Distribution Width 13.6 % (11.5-14.5); White Blood Cell (WBC) Count 7.5 thou/uL (4.8-10.8)
[2021-07-20 05:42] LABS: Anion Gap 10 mmol/L (10-20); BUN (Urea Nitrogen) 9 mg/dL (8.4-25.7); Calc. Creatinine Clearance 101 mL/min (70-130); Calcium 9.6 mg/dL (7.8-10.44); Carbon Dioxide 25 mmol/L (23-31); Chloride 106 mmol/L (98-107); Glucose 165 mg/dL (83-110); Potassium 3.5 mmol/L (3.5-5.1); Sodium 137 mmol/L (136-145)
[2021-07-20] MEDS: Losartan 25 MG TAB PO SCH (09:30)
[2021-07-20] MEDS: Saccharomyces boulardii 250 MG CAP PO SCH (09:30)
[2021-07-20] MEDS: Aspirin 325 mg Enteric Coated Tablet PO SCH (09:30)
[2021-07-20] MEDS: PARoxetine 20 MG TAB PO SCH ×2 (09:30→20:54)
[2021-07-20] MEDS: Folic Acid 1 MG TAB PO SCH ×2 (09:30→20:54)
[2021-07-20] MEDS: Lantus 1000 UNITS/10 ML VIAL SC SCH ×2 (09:31→21:17)
[2021-07-20] MEDS: Allopurinol 300 MG TAB PO SCH (09:31)
[2021-07-20] MEDS: busPIRone HCl 5 MG TAB PO SCH ×2 (09:31→20:54)
[2021-07-20] MEDS: Famotidine 20 MG TAB PO SCH ×2 (09:31→20:54)
[2021-07-20] MEDS: HumaLOG 300 UNITS/3 ML VIAL SC PRN ×2 (11:17→21:18)
[2021-07-20] MEDS: Atorvastatin Calcium 40 MG TAB PO SCH (20:54)
[2021-07-21] MEDS: HYDROcodone/Acetaminophen 10/325 mg Tablet PO PRN ×2 (03:16→18:18)
[2021-07-21] MEDS: Levothyroxine Sodium 112 MCG TAB PO SCH (05:27)
[2021-07-21] MEDS: Cefepime 1 GM in Sodium Chloride 0.9% 100 ML IVPB SCH ×2 (05:28→17:56)
[2021-07-21] MEDS: Folic Acid 1 MG TAB PO SCH ×2 (09:11→21:41)
[2021-07-21] MEDS: PARoxetine 20 MG TAB PO SCH ×2 (09:11→21:42)
[2021-07-21] MEDS: Famotidine 20 MG TAB PO SCH ×2 (09:12→21:41)
[2021-07-21] MEDS: Acetaminophen 500 MG TAB PO SCH ×2 (09:12→17:56)
[2021-07-21] MEDS: Allopurinol 300 MG TAB PO SCH (09:12)
[2021-07-21] MEDS: Losartan 25 MG TAB PO SCH (09:12)
[2021-07-21] MEDS: Saccharomyces boulardii 250 MG CAP PO SCH (09:12)
[2021-07-21] MEDS: Aspirin 325 mg Enteric Coated Tablet PO SCH (09:12)
[2021-07-21] MEDS: Lantus 1000 UNITS/10 ML VIAL SC SCH ×2 (09:13→21:43)
[2021-07-21] MEDS: busPIRone HCl 5 MG TAB PO SCH ×2 (09:17→21:41)
[2021-07-21] MEDS: HumaLOG 300 UNITS/3 ML VIAL SC PRN ×2 (11:25→18:25)
[2021-07-21 14:09] LABS: #Eosinphils 0.2 thou/uL (0.0-0.7); #Lymphocytes 1.6 thou/uL (1.20-3.40); #Monocytes 0.6 thou/uL (0.11-0.59); #Neutrophils 6.6 thou/uL (1.40-6.50); %Basophils 0.4 % (0.0-1.0); %Eosinophils 1.8 % (0.0-10.0); %Lymphocytes 17.5 % (21.0-51.0); %Monocytes 6.4 % (0.0-10.0); %Neutrophils 73.8 % (42.0-75.0); Hemoglobin 10.5 g/dL (14.0-18.0); Mean Corpuscular HGB CONC 33.5 g/dL (32.0-36.0); Mean Corpuscular Hemoglobin 30.9 pg (27.0-31.0); Mean Corpuscular Volume 92.3 fL (78.0-98.0); Mean Platelet Volume 6.6 fL (7.4-10.4); Platelet Count 313 thou/uL (130-400); RBC Distribution Width 13.7 % (11.5-14.5); Red Blood Cell (RBC) Count 3.39 mill/uL (4.70-6.10)
[2021-07-21 14:30] LABS: Anion Gap 11 mmol/L (10-20); BUN (Urea Nitrogen) 14 mg/dL (8.4-25.7); Calc. Creatinine Clearance 89 mL/min (70-130); Carbon Dioxide 25 mmol/L (23-31); Chloride 102 mmol/L (98-107); Glucose 273 mg/dL (83-110); Potassium 3.7 mmol/L (3.5-5.1); Sodium 134 mmol/L (136-145)
[2021-07-21] MEDS: Atorvastatin Calcium 40 MG TAB PO SCH (21:41)
[2021-07-22] MEDS: Acetaminophen 500 MG TAB PO SCH ×3 (00:04→15:23)
[2021-07-22 04:30] LABS: #Eosinphils 0.3 thou/uL (0.0-0.7); #Lymphocytes 1.9 thou/uL (1.20-3.40); #Monocytes 0.8 thou/uL (0.11-0.59); #Neutrophils 6.3 thou/uL (1.40-6.50); %Basophils 0.2 % (0.0-1.0); %Eosinophils 2.8 % (0.0-10.0); %Lymphocytes 20.7 % (21.0-51.0); %Monocytes 8.1 % (0.0-10.0); %Neutrophils 68.2 % (42.0-75.0); Hemoglobin 10.8 g/dL (14.0-18.0); Mean Corpuscular HGB CONC 33.1 g/dL (32.0-36.0); Mean Corpuscular Hemoglobin 30.1 pg (27.0-31.0); Mean Corpuscular Volume 91.1 fL (78.0-98.0); Mean Platelet Volume 7.1 fL (7.4-10.4); Platelet Count 312 thou/uL (130-400); RBC Distribution Width 13.6 % (11.5-14.5); Red Blood Cell (RBC) Count 3.57 mill/uL (4.70-6.10); White Blood Cell (WBC) Count 9.3 thou/uL (4.8-10.8)
[2021-07-22 04:52] LABS: Anion Gap 12 mmol/L (10-20); BUN (Urea Nitrogen) 12 mg/dL (8.4-25.7); Calc. Creatinine Clearance 104 mL/min (70-130); Calcium 9.3 mg/dL (7.8-10.44); Carbon Dioxide 24 mmol/L (23-31); Chloride 102 mmol/L (98-107); Glucose 186 mg/dL (83-110); Potassium 3.6 mmol/L (3.5-5.1); Sodium 134 mmol/L (136-145)
[2021-07-22] MEDS: Cefepime 1 GM in Sodium Chloride 0.9% 100 ML IVPB SCH ×2 (05:47→18:06)
[2021-07-22] MEDS: Levothyroxine Sodium 112 MCG TAB PO SCH (05:48)
[2021-07-22] MEDS: Famotidine 20 MG TAB PO SCH ×2 (08:54→21:25)
[2021-07-22] MEDS: Aspirin 325 mg Enteric Coated Tablet PO SCH (08:55)
[2021-07-22] MEDS: PARoxetine 20 MG TAB PO SCH ×2 (08:55→21:25)
[2021-07-22] MEDS: Losartan 25 MG TAB PO SCH (08:56)
[2021-07-22] MEDS: Saccharomyces boulardii 250 MG CAP PO SCH (08:58)
[2021-07-22] MEDS: Folic Acid 1 MG TAB PO SCH ×2 (08:58→21:25)
[2021-07-22] MEDS: busPIRone HCl 5 MG TAB PO SCH ×2 (08:58→21:25)
[2021-07-22] MEDS: Allopurinol 300 MG TAB PO SCH (08:59)
[2021-07-22] MEDS: Lantus 1000 UNITS/10 ML VIAL SC SCH ×2 (08:59→21:27)
[2021-07-22] MEDS: HumaLOG 300 UNITS/3 ML VIAL SC PRN ×2 (12:17→18:07)
[2021-07-22] MEDS ORDERED: Ergocalciferol 1.25 MG(50,000 UNITS) CAP PO SCH (14:30)
[2021-07-22] MEDS: Calcium Carbonate 500 MG TAB PO SCH (18:06)
[2021-07-22] MEDS: Atorvastatin Calcium 40 MG TAB PO SCH (21:24)
[2021-07-22] MEDS: HYDROcodone/Acetaminophen 10/325 mg Tablet PO PRN (21:26)
[2021-07-23] MEDS: Acetaminophen 500 MG TAB PO SCH ×3 (00:03→16:24)
[2021-07-23] MEDS: Cefepime 1 GM in Sodium Chloride 0.9% 100 ML IVPB SCH (06:00)
[2021-07-23] MEDS: Levothyroxine Sodium 112 MCG TAB PO SCH (06:01)
[2021-07-23] MEDS: HYDROcodone/Acetaminophen 10/325 mg Tablet PO PRN ×3 (06:01→22:00)
[2021-07-23] MEDS: Losartan 25 MG TAB PO SCH (09:13)
[2021-07-23] MEDS: Famotidine 20 MG TAB PO SCH ×2 (09:13→21:58)
[2021-07-23] MEDS: Allopurinol 300 MG TAB PO SCH (09:14)
[2021-07-23] MEDS: busPIRone HCl 5 MG TAB PO SCH ×2 (09:14→21:58)
[2021-07-23] MEDS: Folic Acid 1 MG TAB PO SCH ×2 (09:14→21:59)
[2021-07-23] MEDS: Calcium Carbonate 500 MG TAB PO SCH ×2 (09:14→16:25)
[2021-07-23] MEDS: Saccharomyces boulardii 250 MG CAP PO SCH (09:14)
[2021-07-23] MEDS: Aspirin 325 mg Enteric Coated Tablet PO SCH (09:22)
[2021-07-23] MEDS: PARoxetine 20 MG TAB PO SCH ×2 (09:22→22:00)
[2021-07-23] MEDS: Lantus 1000 UNITS/10 ML VIAL SC SCH ×2 (09:23→21:59)
[2021-07-23] MEDS: HumaLOG 300 UNITS/3 ML VIAL SC PRN ×2 (11:42→17:36)
[2021-07-23] MEDS ORDERED: HYDROcodone/Acetaminophen 7.5/325 mg Tablet PO PRN (13:58)
[2021-07-23] MEDS: Atorvastatin Calcium 40 MG TAB PO SCH (21:58)
[2021-07-24] MEDS: Acetaminophen 500 MG TAB PO SCH ×3 (01:54→16:14)
[2021-07-24] MEDS: Senokot S 8.6-50 MG TAB PO PRN ×2 (05:47→22:08)
[2021-07-24] MEDS: Levothyroxine Sodium 112 MCG TAB PO SCH (05:47)
[2021-07-24] MEDS: Folic Acid 1 MG TAB PO SCH ×2 (08:53→22:09)
[2021-07-24] MEDS: Saccharomyces boulardii 250 MG CAP PO SCH (08:53)
[2021-07-24] MEDS: Losartan 25 MG TAB PO SCH (08:53)
[2021-07-24] MEDS: Allopurinol 300 MG TAB PO SCH (08:53)
[2021-07-24] MEDS: busPIRone HCl 5 MG TAB PO SCH ×2 (08:54→22:18)
[2021-07-24] MEDS: Aspirin 325 mg Enteric Coated Tablet PO SCH (08:54)
[2021-07-24] MEDS: Famotidine 20 MG TAB PO SCH ×2 (08:55→22:18)
[2021-07-24] MEDS: Calcium Carbonate 500 MG TAB PO SCH ×2 (08:56→16:17)
[2021-07-24] MEDS: PARoxetine 20 MG TAB PO SCH ×2 (09:00→22:09)
[2021-07-24] MEDS: Lantus 1000 UNITS/10 ML VIAL SC SCH ×2 (09:00→22:19)
[2021-07-24] MEDS: HumaLOG 300 UNITS/3 ML VIAL SC PRN ×2 (11:57→22:20)
[2021-07-24] MEDS: HYDROcodone/Acetaminophen 10/325 mg Tablet PO PRN (22:06)
[2021-07-24] MEDS: Atorvastatin Calcium 40 MG TAB PO SCH (22:18)
[2021-07-25] MEDS: Bisacodyl 5 MG TAB PO PRN (01:37)
[2021-07-25] MEDS: Acetaminophen 500 MG TAB PO SCH ×3 (01:37→14:39)
[2021-07-25] MEDS: Levothyroxine Sodium 112 MCG TAB PO SCH (05:05)
[2021-07-25] MEDS: HYDROcodone/Acetaminophen 10/325 mg Tablet PO PRN (05:05)
[2021-07-25] MEDS: HumaLOG 300 UNITS/3 ML VIAL SC PRN ×3 (06:08→16:25)
[2021-07-25] MEDS: Calcium Carbonate 500 MG TAB PO SCH ×2 (08:49→16:24)
[2021-07-25] MEDS: Losartan 25 MG TAB PO SCH (08:50)
[2021-07-25] MEDS: Famotidine 20 MG TAB PO SCH (08:50)
[2021-07-25] MEDS: busPIRone HCl 5 MG TAB PO SCH (08:50)
[2021-07-25] MEDS: Folic Acid 1 MG TAB PO SCH (08:50)
[2021-07-25] MEDS: Saccharomyces boulardii 250 MG CAP PO SCH (08:50)
[2021-07-25] MEDS: Allopurinol 300 MG TAB PO SCH (08:50)
[2021-07-25] MEDS: PARoxetine 20 MG TAB PO SCH (08:50)
[2021-07-25] MEDS: Aspirin 325 mg Enteric Coated Tablet PO SCH (08:52)
[2021-07-25] MEDS: Lantus 1000 UNITS/10 ML VIAL SC SCH (08:54)
[2021-07-25 16:27] VITALS: BP 146/81; TEMP 98.4
[2021-07-25 17:42] LABS: SARS-CoV-2 PCR by NAA Not Detected (NotDetected)
[2021-07-29] MEDS ORDERED: Ergocalciferol 1.25 MG(50,000 UNITS) CAP PO SCH (09:00)
== END 2021-07-25 19:50 | DRG 551 ==
LOC: 2NO 14:19 → OBSVTOIN 07-19 07:11 → SURG A 07-24 20:02
PROVIDERS: ADMIT Internal Medicine; ATTEND Internal Medicine
DX: S12.030A Displaced posterior arch fracture of first cervical vertebra, initial encounter for closed fracture (principal); G93.41 Metabolic encephalopathy; E87.1 Hypo-osmolality and hyponatremia; E11.52 Type 2 diabetes mellitus with diabetic peripheral angiopathy with gangrene; I96 Gangrene, not elsewhere classified; Z20.822 Contact with and (suspected) exposure to COVID-19; W19.XXXA Unspecified fall, initial encounter; F41.9 Anxiety disorder, unspecified; F32.A Depression, unspecified; D50.9 Iron deficiency anemia, unspecified; M10.9 Gout, unspecified; F03.90 Unspecified dementia, unspecified severity, without behavioral disturbance, psychotic disturbance, mood disturbance, and anxiety; N31.9 Neuromuscular dysfunction of bladder, unspecified; K21.9 Gastro-esophageal reflux disease without esophagitis; I25.10 Atherosclerotic heart disease of native coronary artery without angina pectoris; G89.29 Other chronic pain; I10 Essential (primary) hypertension; Z96.641 Presence of right artificial hip joint; E78.5 Hyperlipidemia, unspecified; R13.10 Dysphagia, unspecified; L97.519 Non-pressure chronic ulcer of other part of right foot with unspecified severity; E11.621 Type 2 diabetes mellitus with foot ulcer; L97.509 Non-pressure chronic ulcer of other part of unspecified foot with unspecified severity; N39.41 Urge incontinence; E11.9 Type 2 diabetes mellitus without complications; E03.9 Hypothyroidism, unspecified; Y92.129 Unspecified place in nursing home as the place of occurrence of the external cause; Z95.5 Presence of coronary angioplasty implant and graft; Z90.89 Acquired absence of other organs; Z98.890 Other specified postprocedural states; Z88.0 Allergy status to penicillin; Z79.4 Long term (current) use of insulin; Z79.899 Other long term (current) drug therapy; Z93.59 Other cystostomy status
CPT/HCPCS: 36415; 36416; 80048; 82306; 82533; 82607; 82746; 83735; 84443; 85025; 86140; 93005; 93010; 93923; 96374; 96375; 96376; G0378; J0692; J1815; J1885; J3370; J3475; J3490; J7050; U0003; U0005